=== PATIENT | male | born 1945 | race Caucasian/White ===

== ENCOUNTER 2016-08-16 09:55 | Day surgery (SDC) | payer MEDICARE, OTHER ==
--- NOTE | 2016-08-15 13:14 | PCM.PREANE ---
Preanesthetic Assessment - ANESTHESIA/TRANSFUSION/FAMILY HX Anesthesia/Transfusion History: Prior Anesthesia Family History of Anesthesia Reaction: No - REVIEW OF SYSTEMS Constitutional: Reports: no symptoms SHOVE UP: Reports: no symptoms Respiratory: Reports: no symptoms Cardiovascular: Reports: no symptoms GI: Reports: no symptoms Other: Reports: none - PHYSICAL ASSESSMENT Height: 5 ft 5 in Weight: 67.585 kg ASA Class: 3 Mental Status: alert & oriented x3 Airway Class: Mallampati = 2 Dentition: Reports: normal dentition ROM/Head Extension: full Respiratory Status: lungs clear to auscultation bilaterally Cardiovascular Status: regular rate & rhythm, normal S1, S2, no murmur, blood pressure WNL - ALLERGIES Allergies/Adverse Reactions: Allergies Allergy/AdvReac Type Severity Reaction Status Date / Time Penicillins Allergy Rash Verified 08/11/16 12:45 - ANESTHESIA PLAN Free Text/Narrative:: Pt is currently using albuterol inhaler 2-3 times daily. Pt will receive albuterol neb tx and EKG prior to procedure. Anesthesia Type Planned: MAC - ACKNOWLEDGEMENTS Pt an appropriate candidate for the planned anesthesia: Yes Alternatives and risks of anesthesia discussed w pt/guardian: Yes Pt/Guardian understands and agree with anesthesia plan: Yes PreAnesthesia Questionnaire HEENT History: Reports: Hard of hearing Other HEENT History: wears glasses, yuan hearing aids Cardiovascular History: Reports: High cholesterol, Hypertension Respiratory History: Reports: COPD, SOB, Other (see below) Other Respiratory History: 1 pack a day smoker for 44 years, wheezing at times , has inhaler he uses almost every day, 2-3 times per day Gastrointestinal History: Reports: Colon polyp, GERD Genitourinary History: Reports: None Musculoskeletal History: Reports: Osteoarthritis Neurological History: Reports: None Psychiatric History: Reports: None Endocrine/Metabolic History: Reports: None Hematologic History: Reports: None Immunologic History: Reports: None Oncologic (Cancer) History: Reports: None Dermatologic History: Reports: None - Infectious Disease History Infectious Disease History: Reports: None - Past Surgical History Head Surgeries/Procedures: Reports: None GI Surgical History: Reports: Colonoscopy Male Surgical History: Reports: Vasectomy Musculoskeletal Surgical History: Reports: Arthroscopic knee, Knee replacement Other Musculoskeletal Surgeries/Procedures:: hx ankle surgery, total knee replacement, and knee arthroscopy - SUBSTANCE USE Smoking Status *Q: Current Every Day Smoker Tobacco Use Within Last Twelve Months: Cigarettes Days Per Week of Alcohol Use: 7 Number of Drinks Per Day: 2 Total Drinks Per Week: 14 Recreational Drug Use History: No - HOME MEDS Home Medications: Home Meds Albuterol [Proventil HFA] 2 puff INH ASDIRECTED PRN 08/11/16 [History] Ascorbate Calcium [Vitamin C] 500 mg PO TID 08/11/16 [History] Aspirin [[place] Aspirin] 81 mg PO DAILY 08/11/16 [History] Cholecalciferol (Vitamin D3) [Vitamin D3] 1,000 units PO DAILY 08/11/16 [History ] Ibuprofen 2 tab PO ASDIRECTED PRN 08/11/16 [History] L.acidoph,Paracasei, B.lactis [Probiotic] 1 tab PO DAILY 08/11/16 [History] Multivitamin [Men's Multi-Vitamin] 1 tab PO DAILY 08/11/16 [History] Niacin [Niacin ER] 500 mg PO BID 08/11/16 [History] Omeprazole 20 mg PO DAILY 08/11/16 [History] Saw [place] 200 mg PO DAILY 08/11/16 [History] Vitamin E 400 units PO DAILY 08/11/16 [History] Zinc 50 mg PO DAILY 08/11/16 [History] atorvaSTATin Calcium [Atorvastatin Calcium] 80 mg PO BEDTIME 08/11/16 [History] - CURRENT (IN HOUSE) MEDS Current Meds: Current Medications Lactated Ringer's (Ringers, Lactated) 1,000 mls @ 125 mls/hr IV ASDIRECTED [facility]
[~2016-08-16 09:55] MED LIST: Albuterol 0.083% 2.5 MG/3 ML Neb Soln NEB ONE; Lactated Ringers 1,000 ML IV SCH; Lidocaine 2% 5 ML SDV ONE; Propofol 200 MG/20 ML SDV ONE; fentaNYL 100 MCG/2 ML SDV ONE
[2016-08-16] MEDS ORDERED: Albuterol 0.083% 2.5 MG/3 ML Neb Soln ONE (10:28)
[2016-08-16] MEDS ORDERED: fentaNYL 100 MCG/2 ML SDV ONE (13:02)
[2016-08-16] MEDS ORDERED: Lactated Ringers 1,000 ML IV SCH (13:15)
--- NOTE | 2016-08-16 13:16 | PCM.OPNOTE ---
- General Post-Op/Procedure Note Date of Surgery/Procedure: 08/16/16 Operative Procedure(s): Colonoscopy Pre Op Diagnosis: Personal history of colon polyps Post-Op Diagnosis: Sigmoid diverticulosis Anesthesia Technique: MAC (ASA III) Primary Surgeon: Darren Magdaleno Supervisor [employer] Department: Yohana Dia Condition: Good Free Text/Narrative:: Dictation [id number]
--- NOTE | 2016-08-16 13:32 | PCM.POSTAN ---
POST ANESTHESIA ASSESSMENT - MENTAL STATUS Mental Status: alert, oriented - RESPIRATORY Respiratory Status: respiratory rate WNL, airway patent, O2 saturation stable - CARDIOVASCULAR CV Status: pulse rate WNL, blood pressure stable - GASTROINTESTINAL GI Status: no symptoms - POST OP HYDRATION Hydration Status: adequate & stable
[2016-08-16 14:01] VITALS: BP 102/54
--- NOTE | 2016-08-17 06:18 | OR ---
SURGEON: Darren Magdaleno M.D. DATE OF PROCEDURE: 08/16/2016 OPERATION PERFORMED: Colonoscopy. LOCOMOTIVE ELECTRICIAN: Dr. Dia. ANESTHESIA: MAC. ASA CLASSIFICATION: III. PREOPERATIVE DIAGNOSIS: Personal history of colon polyps. POSTOPERATIVE DIAGNOSIS: Sigmoid diverticulosis. No evidence of neoplasia. DESCRIPTION OF PROCEDURE: The patient was taken to the endoscopy room and positioned on the endoscopy table in the left lateral decubitus position. Time-out was called for appropriate identification of patient and procedure. Monitored anesthesia care was provided. The colonoscope was inserted into the rectum and advanced with moderate difficulty to the cecum where the colonoscope was retroflexed to visualize the ascending colon from below. The colonoscope was then straightened and slowly withdrawn. The cecum, ascending colon, hepatic flexure, transverse colon, splenic flexure, and descending colon showed no tumors, polyps, diverticula, or angiodysplastic changes. Sigmoid colon demonstrates numerous wide-mouth diverticula. No stricture, spasm, or bleeding was noted. No polyps were encountered. The colonoscope was withdrawn to the rectum and retroflexed to visualize the anal orifice from above. No tumors or polyps were seen and there were no acute hemorrhoidal changes. The colonoscope was then straightened and the rectum aspirated, and the colonoscope removed. The patient tolerated the procedure well and was taken to recovery room in stable condition. AUDREY NOLASCO /[id number]
== END 2016-08-16 13:59 | disposition home or self-care (01) ==
LOC: MW.SDS 09:55
PROVIDERS: ATTEND Surgery
PROC: 0DJD8ZZ Inspection of Lower Intestinal Tract, Via Natural or Artificial Opening Endoscopic (ICD-10-PCS; principal; 2016-08-16)
DX: Z12.11 Encounter for screening for malignant neoplasm of colon (principal); K57.30 Diverticulosis of large intestine without perforation or abscess without bleeding; E78.00 Pure hypercholesterolemia, unspecified; F17.210 Nicotine dependence, cigarettes, uncomplicated; I10 Essential (primary) hypertension; J44.9 Chronic obstructive pulmonary disease, unspecified; K21.9 Gastro-esophageal reflux disease without esophagitis; M19.90 Unspecified osteoarthritis, unspecified site; Z86.010 Personal history of colon polyps; Z86.19 Personal history of other infectious and parasitic diseases; Z88.0 Allergy status to penicillin; Z79.82 Long term (current) use of aspirin; Z79.899 Other long term (current) drug therapy; Z98.52 Vasectomy status; Z96.659 Presence of unspecified artificial knee joint; Z98.890 Other specified postprocedural states
CPT/HCPCS: 93005; 94664; G0105; J3010; J7120; 00810; J2704

== ENCOUNTER 2017-09-27 10:57 | Day surgery (SDC) | payer OTHER, MEDICARE ==
[~2017-09-27 10:57] MED LIST changes: -Albuterol 0.083% 2.5 MG/3 ML Neb Soln NEB ONE; +Betamethasone Acetate/Betamethasone Sod Phosphate 30 MG/5 ML MDV ONE; +Iopamidol 408 MG/ML 50 ML SDV ONE; -Lactated Ringers 1,000 ML IV SCH; -Propofol 200 MG/20 ML SDV ONE; +Ropivacaine 0.5% 5 MG/ML 30 ML SDV ONE; -fentaNYL 100 MCG/2 ML SDV ONE
--- NOTE | 2017-09-27 14:25 | OR ---
SURGEON: Lorrie Evans D.O. DATE OF PROCEDURE: 09/27/2017 OR STAFF PRESENT: 1. Leonardo Samuel RN. 2. Manda Aldana RN. 3. RT Sigifredo. WOUND CLASSIFICATION: I. PREOPERATIVE DIAGNOSES: 1. Lumbar radiculopathy. 2. Lumbar spinal stenosis. 3. Chronic low back pain. POSTOPERATIVE DIAGNOSES: 1. Lumbar radiculopathy. 2. Lumbar spinal stenosis. 3. Chronic low back pain. PROCEDURES PERFORMED: 1. Caudal epidural steroid injection. 2. Fluoroscopic guidance for needle placement. 3. Local with oral Valium for sedation. SCREENING QUESTIONS: The patient answered "no" to all of the following questions: 1. Are you allergic to latex? 2. Do you have a bleeding disorder? 3. Do you have any current local or systemic infections? 4. Are you taking any anti-inflammatories or blood thinners? 5. Do you have any joint replacements, heart valve replacements, or a pacemaker? DESCRIPTION OF PROCEDURE: The patient had the procedure thoroughly explained including all possible risks, benefits and alternatives. Consent was signed in my clinic indicating understanding and willingness to proceed. The patient presented to [facility] and was escorted to the dressing room to disrobe and change into a hospital gown. Preoperative vital signs were taken and stable. The patient reported that Valium was taken prior to the procedure. The patient was brought back to the procedure room and placed in the prone position on the procedure room table. A pillow was placed under the hips in order to flatten the lumbar lordosis. The back was prepped with ChloraPrep and sterilely draped. All personnel in the operating room were dressed in appropriate attire including surgical scrubs, head and shoe covers. This was to ensure sterility while in the treatment room. During the time fluoroscopy was in use, all personnel in the operating room wore lead hernandez with thyroid collars. Sterile technique was used throughout the procedure. The patient was awake and conversant throughout the procedure. There was no evidence of infection at the site of needle insertion. Skeletal landmarks were identified under fluoroscopy for the lumbar epidural. Skin was anesthetized with 2% lidocaine with a sterile 27-gauge 1.5 inch needle. Then, a 20-gauge Tuohy epidural needle was placed in the epidural space with loss of resistance technique under fluoroscopic guidance. No heme, cerebrospinal fluid, or paresthesias were noted. Isovue-200 contrast dye was injected in 0.2 cubic centimeter increments and seen to outline the epidural space in both AP and lateral views. There was no intravascular flow pattern observed under live fluoroscopy. Then 12 milligrams of Celestone was slowly injected after negative aspiration. The patient tolerated the procedure well. Vital signs were stable during and after the procedure. The staff escorted the patient to the recovery area and the patient was released in stable condition after a brief stay in the recovery room monitored by the nurse. The patient was given both oral and written discharge and follow up instructions with recommendation to follow up given for 2-3 weeks. The patient voiced understanding including understanding of those signs and symptoms that would require emergency care. The patient knows how to contact the office if there are any additional problems or questions in the meantime. PREOPERATIVE PAIN: 7/10. POSTOPERATIVE PAIN: 4/10. FOLLOWUP: Follow up in Pain Clinic in 3 weeks. BECKI / CONSTANCE /[id number]
== END 2017-09-27 13:00 | disposition home or self-care (01) ==
LOC: MW.SDS 10:57
PROVIDERS: ATTEND Anesthesiology
DX: G89.29 Other chronic pain (principal); M54.5 Low back pain; M54.16 Radiculopathy, lumbar region; M48.061 Spinal stenosis, lumbar region without neurogenic claudication; E78.00 Pure hypercholesterolemia, unspecified; Z79.82 Long term (current) use of aspirin; Z79.899 Other long term (current) drug therapy; F17.210 Nicotine dependence, cigarettes, uncomplicated; Z88.0 Allergy status to penicillin
CPT/HCPCS: 62323; J0702; J2795; Q9966

== ENCOUNTER 2017-10-01 13:35 | Emergency (ER) | payer MEDICARE, OTHER ==
--- NOTE | 2017-10-01 14:07 | EDM.PDOC ---
ED HPI GENERAL MEDICAL PROBLEM - General Chief Complaint: Back Pain or Injury Stated Complaint: AMBULANCE Time Seen by Provider: 10/01/17 14:01 Source of Information: Reports: Patient History Limitations: Reports: No Limitations - History of Present Illness INITIAL COMMENTS - FREE TEXT/NARRATIVE: HISTORY AND PHYSICAL: History of present illness: Patient is a 72-year-old male who presents to the emergency room today with complaints of low back pain. He has a long-standing history of low back pain into the left lower extremity, multilevel degenerative disc disease, lumbar lordosis and spinal stenosis. He saw Dr. Funk for an epidural steriod on 2017. States he felt somewhat improved the following day but by the end of that evening he did have symptoms started to return. Today while lying in his bed he was doing some physical therapy exercises and moving his knees side to side. While moving his knees he did feel a muscular spasm to his left low back. He called the ambulance to come and be evaluated. He states he does have hydrocodone available to him (uses at night time) and uses [id number] Tylenol and ice routinely. Denies any urinary or fecal incontinence. Denies any fever, chills, chest pain or shortness of breath. Denies any abdominal pain, nausea, vomiting, diarrhea or constipation. Denies any injury or trauma. Review of systems: As per history of present illness and below otherwise all systems reviewed and negative. Past medical history: As per history of present illness and as reviewed below otherwise noncontributory. Surgical history: As per history of present illness and as reviewed below otherwise noncontributory. Social history: No reported history of drug or alcohol abuse. Family history: As per history of present illness and as reviewed below otherwise noncontributory. Physical exam: General: Well-developed and well-nourished 72-year-old male. Alert and oriented. Nontoxic appearing and in no acute distress. HEENT: Atraumatic, normocephalic, pupils equal and reactive bilaterally, negative for conjunctival pallor or scleral icterus, mucous membranes moist, throat clear, neck supple, nontender, trachea midline. No drooling or trismus noted. No meningeal signs Lungs: Clear to auscultation, breath sounds equal bilaterally, chest nontender. Heart: S1S2, regular rate and rhythm without overt murmur Abdomen: Soft, nondistended, nontender. Negative for masses or hepatosplenomegaly. Negative for costovertebral tenderness. Pelvis: Stable nontender. Genitourinary: Deferred. Rectal: Deferred. Skin: Intact, warm, dry. No lesions or rashes noted. Extremities: Atraumatic, negative for cords or calf pain. Neurovascular unremarkable. Neuro: Awake, alert, oriented. Cranial nerves II through XII unremarkable. Cerebellum unremarkable. Motor and sensory unremarkable throughout. Exam nonfocal. Notes: Epidural site appears intact without signs of infection or complications. X-ray shows degenerative disc disease at L3-4 and L5-S1. No evidence of fracture subluxation or bony lesions. Discussed with patient the limited options through the emergency room as he has recently had an epidural steroid injection. He does take hydrocodone at night. Prescribed him Flexeril as he is describing this discomfort as a muscular spasm we discussed thoroughly to not combine his Flexeril with his nighttime hydrocodone. He voices understanding and will follow up with Dr Funk/Nathan on Tuesday. We discussed signs and symptoms that would prompt him to come back to the emergency room. He and his significant other voice understanding and are agreeable to plan of care. They deny any further questions at this time. Diagnostics: Lumbar x-ray Therapeutics: Norflex, Toradol Impression: Chronic degenerative disc disease Muscular strain, left low back Plan: 1. Flexeril one tab up to 3 times daily as needed for muscular spasms. 2. Continue to use your Tylenol and/or ibuprofen as needed for daytime use. You may continue to use the ice as needed for pain management. 3. Follow-up with your primary care doctor on Tuesday. Please inform them you were evaluated in the emergency room over the weekend. To the ED as needed and as discussed. Definitive disposition and diagnosis as appropriate pending reevaluation and review of above. Duration: Hour(s):, Chronic Location: Reports: Back Left Lower Back Pain Score (Numeric/FACES): 7 - Related Data Allergies Allergy/AdvReac Type Severity Reaction Status Date / Time Penicillins Allergy Rash Verified 10/01/17 13:46 Home Meds: Home Meds Albuterol [Proventil HFA] 2 puff INH ASDIRECTED PRN 08/11/16 [History] Ascorbate Calcium [Vitamin C] 500 mg PO TID 08/11/16 [History] Aspirin [[place] Aspirin] 81 mg PO DAILY 08/11/16 [History] Cholecalciferol (Vitamin D3) [Vitamin D3] 1,000 units PO DAILY 08/11/16 [History ] Ibuprofen 2 tab PO ASDIRECTED PRN 08/11/16 [History] L.acidoph,Paracasei, B.lactis [Probiotic] 1 tab PO DAILY 08/11/16 [History] Multivitamin [Men's Multi-Vitamin] 1 tab PO DAILY 08/11/16 [History] Niacin [Niacin ER] 500 mg PO BID 08/11/16 [History] Omeprazole 20 mg PO DAILY 08/11/16 [History] Saw [place] 200 mg PO DAILY 08/11/16 [History] Vitamin E 400 units PO DAILY 08/11/16 [History] Zinc 50 mg PO DAILY 08/11/16 [History] atorvaSTATin Calcium [Atorvastatin Calcium] 80 mg PO BEDTIME 08/11/16 [History] Acetaminophen/HYDROcodone [[place] 325-5 MG] 1 tab PO Q8H PRN 10/01/17 [History] Past Medical History HEENT History: Reports: Hard of Hearing Other HEENT History: wears glasses, yuan hearing aids Cardiovascular History: Reports: High Cholesterol, Hypertension Respiratory History: Reports: COPD, SOB, Other (See Below) Other Respiratory History: 1 pack a day smoker for 44 years, wheezing at times , has inhaler he uses almost every day, 2-3 times per day Gastrointestinal History: Reports: Colon Polyp, GERD Genitourinary History: Reports: None Musculoskeletal History: Reports: Osteoarthritis Neurological History: Reports: None Psychiatric History: Reports: None Endocrine/Metabolic History: Reports: None Hematologic History: Reports: None Immunologic History: Reports: None Oncologic (Cancer) History: Reports: None Dermatologic History: Reports: None - Infectious Disease History Infectious Disease History: Reports: Chicken Pox - Past Surgical History Head Surgeries/Procedures: Reports: None Male Surgical History: Reports: Vasectomy Musculoskeletal Surgical History: Reports: Arthroscopic Knee, Knee Replacement Social & Family History - Family History Family Medical History: Noncontributory - Tobacco Use Smoking Status *Q: Current Every Day Smoker Years of Tobacco use: 35 Packs/Tins Daily: 1 - Caffeine Use Caffeine Use: Reports: Coffee - Alcohol Use Days Per Week of Alcohol Use: 7 Number of Drinks Per Day: 2 Total Drinks Per Week: 14 - Recreational Drug Use Recreational Drug Use: No Drug Use in Last 12 Months: No ED ROS GENERAL - Review of Systems Review Of Systems: ROS reveals no pertinent complaints other than HPI. ED EXAM,LOWER BACK PAIN/INJURY - Physical Exam Exam: See Below (See dictation) Course - Vital Signs Last Recorded V/S: Last Vital Signs Temp 97.9 F 10/01/17 13:39 Pulse 70 10/01/17 13:39 Resp 18 10/01/17 13:39 BP 171/90 H 10/01/17 13:39 Pulse Ox - Orders/Labs/Meds Orders: Active Orders 24 hr Category Date Time Status Lumbar Spine 2 or 3V [CR] Stat Exams 10/01/17 14:13 Taken Meds: Medications Discontinued Medications Generic Name Dose Route Start Last Admin Trade Name Freq PRN Reason Stop Dose Admin Ketorolac Tromethamine 60 mg 10/01/17 14:59 Toradol IM 10/01/17 15:00 ONETIME ONE Orphenadrine Citrate 60 mg 10/01/17 14:59 Norflex IM 10/01/17 15:00 NOW STA Departure - Departure Time of Disposition: 15:04 Disposition: Home, Self-Care 01 Clinical Impression: Muscle spasm of back, Degenerative disc disease, lumbar - Discharge Information Instructions: Muscle Cramps and Spasms, [id number] Forms: ED Department Discharge Additional Instructions: The following information is given to patients seen in the emergency department who are being discharged to home. This information is to outline your options for follow-up care. We provide all patients seen in our emergency department with a follow-up referral. The need for follow-up, as well as the timing and circumstances, are variable depending upon the specifics of your emergency department visit. If you don't have a primary care physician on staff, we will provide you with a referral. We always advise you to contact your personal physician following an emergency department visit to inform them of the circumstance of the visit and for follow-up with them and/or the need for any referrals to a consulting specialist. The emergency department will also refer you to a specialist when appropriate. This referral assures that you have the opportunity for follow-up care with a specialist. All of these measure are taken in an effort to provide you with optimal care, which includes your follow-up. Under all circumstances we always encourage you to contact your private physician who remains a resource for coordinating your care. When calling for follow-up care, please make the office aware that this follow-up is from your recent emergency room visit. If for any reason you are refused follow-up, please contact the [facility] Emergency Department at and asked to speak to the emergency department charge nurse. [facility] [address] [place] [id number] 1. Flexeril one tab up to 3 times daily as needed for muscular spasms. 2. Continue to use your Tylenol and/or ibuprofen as needed for daytime use. You may continue to use the ice as needed for pain management. 3. Follow-up with your primary care doctor on Tuesday. Please inform them you were evaluated in the emergency room over the weekend. To the ED as needed and as discussed. - My Orders Last 24 Hours: My Active Orders 10/01/17 14:13 Lumbar Spine 2 or 3V [CR] Stat - Assessment/Plan Last 24 Hours: My Active Orders 10/01/17 14:13 Lumbar Spine 2 or 3V [CR] Stat
[2017-10-01] MEDS ORDERED: Ketorolac 60 MG/2 ML SDV IM ONE (14:59)
[2017-10-01 15:50] VITALS: BP 150/98
--- NOTE | 2017-10-03 10:24 | CR ---
EXAM DATE: 10/01/17 PATIENT'S AGE: 72 Patient: [facility] Facility: [place], [place] Site . Site : 1945 Study: XRay Spine Lumbar [id number]/[id number] 2:33:20 PM Ordering Physician: Doctor Zhao Final Report: INDICATION: PAIN IN LOWER BACK AFTER DOING STRECHES IN BED TO TRY TO LOOSEN UP BACK. PT STATES HX OF CHRONIC BACK PAIN TECHNIQUE: Upright AP and lateral lumbar spine films submitted. Comparison : None Findings : Five lumbar-type vertebral bodies. Mild narrowing of the L3-4 and L5-S1 interspaces. Advanced degenerative changes in the lower lumbar facet joints. No fracture, subluxation or destructive bony lesions. Extensive aortoiliac artery calcification. IMPRESSION: Degenerative disc disease at L3-4 and L5-S1. Dictated by Geo Bullock MD @ 10/01/2017 2:38:02 PM Dictated by: Geo Bullock MD @ 10/01/2017 14:38:07 (Electronic Signature) Report Signed by Proxy. JAIDA
== END 2017-10-01 15:50 | disposition home or self-care (01) ==
LOC: MW.ED 13:35
DX: M51.36 Other intervertebral disc degeneration, lumbar region (principal); M62.838 Other muscle spasm; F17.210 Nicotine dependence, cigarettes, uncomplicated; K21.9 Gastro-esophageal reflux disease without esophagitis; Z88.0 Allergy status to penicillin; Z79.899 Other long term (current) drug therapy; Z79.82 Long term (current) use of aspirin
CPT/HCPCS: 72100; 96372; 99284; J1885; J2360; 99283

== ENCOUNTER 2017-11-17 10:52 | Day surgery (SDC) | payer OTHER ==
[2017-11-17] MEDS ORDERED: Lidocaine 1% 0 ML ONE (12:08)
--- NOTE | 2017-11-17 16:35 | OR ---
SURGEON: Lorrie Evans D.O. DATE OF PROCEDURE: 11/17/2017 OR STAFF PRESENT: 1. Eduardo Ignacio RN. 2. Eduardo Lowry RN. 3. RT Sigifredo. WOUND CLASSIFICATION: I. PREOPERATIVE DIAGNOSES: 1. Lumbar degenerative disk disease. 2. Lumbar spondylosis. 3. Lumbar spinal stenosis. POSTOPERATIVE DIAGNOSES: 1. Lumbar degenerative disk disease. 2. Lumbar spondylosis. 3. Lumbar spinal stenosis. PROCEDURES PERFORMED: 1. Left transforaminal epidural steroid injection at L3. 2. Left transforaminal epidural steroid injection at L4. 3. Fluoroscopic guidance for needle placement. 4. Local with oral Valium for sedation. SCREENING QUESTIONS: The patient answered "no" to all of the following questions: 1. Are you allergic to iodine, Betadine or latex? 2. Do you have a bleeding disorder? 3. Do you have any joint replacements, heart valve replacements, or a pacemaker? 4. Are you allergic to anti-inflammatories or blood thinners? 5. Do you have any current local or systemic infections? MEDICAL NECESSITY: This is a patient with a history of chronic low back pain and lower extremity radicular pain in the above dermatomal pattern that comes in for the above diagnostic and therapeutic procedure. Pertinent positives and negatives for this suspected disease process along with the diagnostic findings and testing are in the patient's history and physical exam. The most salient feature includes radicular pain in the above dermatomal pattern. The patient had failed attempts at conservative therapy including physical therapy, nonsteroidal anti- inflammatory drugs, and other medications. No contraindications to perform this procedure including medical, no bleeding disorders or infections, no psychological, no antisocial personality disorder or active addiction disorder. There are no work-related issues, and, in general, the patient does not have any history of multiple prior interventions, surgeries or nerve blocks which have failed to return the patient to function. The patient's other symptoms to be treated include numbness, paresthesia, dysesthesia or hypoesthesia referred into the left lower extremity or any weakness in the involved myotome. This procedure is being performed in accordance with national guidelines as written by the [employer] (MARIZOL). DESCRIPTION OF PROCEDURE: The patient had the procedure thoroughly explained including risks, benefits and alternatives. Consent was signed in my clinic indicating understanding and willingness to proceed. The patient presented to [facility] where the patient was escorted to the dressing room to disrobe and change into a hospital gown. Preoperative vital signs were taken and stable. The patient reported that Valium was taken prior to the procedure. The patient was brought to the procedure room and placed in the prone position on the table. A pillow was placed under the abdomen in order to flatten the lumbar lordosis. The back was prepped with ChloraPrep and sterilely draped. All personnel in the operating room were dressed in appropriate attire including surgical scrubs, head and shoe covers. This was to ensure sterility while in the treatment room. During the time fluoroscopy was in use, all personnel in the operating room wore lead hernandez with thyroid collars. Sterile technique was used during the procedure. The fluoroscope was placed for the left L3 transforaminal epidural steroid injection. There was no sign of infection at the skin site for needle insertion. The skin was anesthetized with 2% lidocaine with a 27 gauge 1-1/2 inch needle. Then, a 22 gauge 3-1/2 inch spinal needle, advanced to the left L3 Foramen at the " 6 o'clock position of the eye of the Anmol dog". Under direct fluoroscopic guidance needle position was verified in three views; AP, oblique and lateral, with 0.2 cubic centimeters increments of Isovue-200 dye. No intravascular flow pattern was observed under live fluoroscopy.Then 6 milligrams of Celestone was slowly injected after negative aspiration of heme, cerebrospinal fluid and no paresthesias were noted. The needle was cleared prior to removal from the skin. The procedure was then repeated for the left L4 transforaminal epidural steroid injection under fluoroscopy as above. No adverse reactions were noted. The patient was brought to the recovery room awake and in good condition by my staff. The patient was monitored for short period of time in recovery room. Discharge instructions were given after a brief stay in the recovery area. Both oral and written discharge and follow up instructions were given. The patient will follow up in the clinic in 3-4 weeks post procedure to evaluate the efficacy. The patient verbalized understanding including understanding of those signs and symptoms that would require emergency care and knows how to contact the office if there are any problems or questions in the meantime. PREOPERATIVE PAIN: 4/10. POSTOPERATIVE PAIN: 2/10. FOLLOWUP: Follow up in the Pain Clinic in 3 weeks. BECKI NOLASCO /[id number] MTDLaura
== END 2017-11-17 13:25 | disposition home or self-care (01) ==
LOC: MW.SDS 10:52
PROVIDERS: ATTEND Anesthesiology
DX: G89.29 Other chronic pain (principal); M48.061 Spinal stenosis, lumbar region without neurogenic claudication; M51.16 Intervertebral disc disorders with radiculopathy, lumbar region; M47.26 Other spondylosis with radiculopathy, lumbar region; J31.0 Chronic rhinitis; F17.210 Nicotine dependence, cigarettes, uncomplicated; Z88.0 Allergy status to penicillin; Z79.899 Other long term (current) drug therapy; Z79.82 Long term (current) use of aspirin
CPT/HCPCS: 62323; J0702; J2795; Q9966

== ENCOUNTER 2020-03-31 13:54 | Inpatient (IN) | payer MEDICARE, OTHER ==
[2020-03-31] MEDS ORDERED: Sodium Chloride 0.9% 10 ML Syringe FLUSH PRN (14:16)
[2020-03-31] MEDS: Sodium Chloride 0.9% 2.5 ML Syringe FLUSH PRN (14:24)
--- NOTE | 2020-03-31 14:28 | EDM.PDOC ---
ED HPI GENERAL MEDICAL PROBLEM - General Chief Complaint: Respiratory Problem Stated Complaint: BROUGHT FROM CLINIC Time Seen by Provider: 03/31/20 14:00 Source of Information: Reports: Patient History Limitations: Reports: No Limitations - History of Present Illness INITIAL COMMENTS - FREE TEXT/NARRATIVE: This is a very nice 74-year-old man with a past medical history of hypertension presenting with low oxygen saturations. He was sent over from the respiratory clinic where he was going for COVID testing. He reports a one-week history of fatigue and generalized weakness along with a chronic cough. His family members wanted him to get tested for COVID. When he went to the respiratory clinic, they checked his oxygen saturations and noted that they were 84% so he was di rected to the emergency department. Here in the ER, the patient denies any chest discomfort or shortness of breath. Denies fever, chills, nausea, vomiting, diarrhea. He reports that he has a chronic cough that he states is at baseline. He does complain of some generalized weakness over the past week or so and feeling generally tired and rundown. He denies any sick contacts with COVID-19 patients. No other complaints. Patient denies history of venous thromboembolism, lower extremity pain or swelling, hemoptysis, recent surgery or immobilization or long travel, history of active malignancy. ROS: A 10-point review of systems was negative, except as noted in the HPI (or in the ROS section of this note). Past medical history: Reviewed, no additional pertinent history. Surgical history: Reviewed in system, no additional pertinent history. Social history: Reviewed in system, no additional pertinent history. Family history: Reviewed in system, no additional pertinent history. PHYSICAL EXAM Vital signs reviewed. Nursing notes reviewed. Constitutional: Awake, alert, non-distressed, thin appearing man. Head: Normocephalic, atraumatic. Eyes: EOMI, conjunctiva normal, no discharge, no scleral icterus. Ears, Nose, Throat: External ears and nose normal, moist oral mucosa. Cardiovascular: 2+ radial pulse, capillary refill less than 2 seconds. Pulmonary: normal work of breathing, no accessory muscle use. Abdomen/GI: Soft, nontender, nondistended, no guarding or rigidity, no masses. Musculoskeletal: No deformities. Integumentary: Appropriate color for ethnicity, warm, dry, no pallor or jaundice, no rash. Neurologic: Alert, answering questions appropriately, normal speech, no facial droop, moving all extremities well. Psychiatric: Appropriate mood and affect, normal thought process. - Related Data Allergies Allergy/AdvReac Type Severity Reaction Status Date / Time Penicillins Allergy Rash Verified 03/31/20 14:13 Home Meds: Home Meds Albuterol [Proventil HFA] 2 puff INH ASDIRECTED PRN 08/11/16 [History] Ascorbate Calcium [Vitamin C] 500 mg PO TID 08/11/16 [History] Aspirin [Beltrami Aspirin EC] 81 mg PO DAILY 08/11/16 [History] Cholecalciferol (Vitamin D3) [Vitamin D3] 1,000 units PO DAILY 08/11/16 [History] Ibuprofen 2 tab PO ASDIRECTED PRN 08/11/16 [History] L.acidoph,Paracasei, B.lactis [Probiotic] 1 tab PO DAILY 08/11/16 [History] Multivitamin [Men's Multi-Vitamin] 1 tab PO DAILY 08/11/16 [History] Niacin [Niacin ER] 500 mg PO BID 08/11/16 [History] Omeprazole 20 mg PO DAILY 08/11/16 [History] Saw [place] 200 mg PO DAILY 08/11/16 [History] Vitamin E 400 units PO DAILY 08/11/16 [History] Zinc 50 mg PO DAILY 08/11/16 [History] atorvaSTATin Calcium [Atorvastatin Calcium] 80 mg PO BEDTIME 08/11/16 [History] Acetaminophen/HYDROcodone [[place] 325-5 MG] 1 tab PO Q8H PRN 10/01/17 [History] Past Medical History HEENT History: Reports: Hard of Hearing Other HEENT History: wears glasses, yuan hearing aids Cardiovascular History: Reports: High Cholesterol, Hypertension Respiratory History: Reports: COPD, SOB, Other (See Below) Other Respiratory History: 1 pack a day smoker for 44 years, wheezing at times, has inhaler he uses almost every day, 2-3 times per day Gastrointestinal History: Reports: Colon Polyp, GERD Genitourinary History: Reports: None Musculoskeletal History: Reports: Osteoarthritis Neurological History: Reports: None Psychiatric History: Reports: None Endocrine/Metabolic History: Reports: None Hematologic History: Reports: None Immunologic History: Reports: None Oncologic (Cancer) History: Reports: None Dermatologic History: Reports: None - Infectious Disease History Infectious Disease History: Reports: Chicken Pox - Past Surgical History Head Surgeries/Procedures: Reports: None Male Surgical History: Reports: Vasectomy Musculoskeletal Surgical History: Reports: Arthroscopic Knee, Knee Replacement Social & Family History - Family History Family Medical History: Noncontributory - Tobacco Use Smoking Status *Q: Current Every Day Smoker Years of Tobacco use: 30 Packs/Tins Daily: 0.5 - Caffeine Use Caffeine Use: Reports: Coffee - Recreational Drug Use Recreational Drug Use: No ED ROS GENERAL - Review of Systems Review Of Systems: See Below ED EXAM, GENERAL - Physical Exam Exam: See Below EKG INTERPRETATION EKG Interpretation Comments: 12-Lead ECG Interpretation Acquired: 2:22 PM Rhythm: Sinus rhythm Rate: 75 bpm [place]: Normal Intervals: Normal Ectopy: None RV Strain: No obvious RV strain pattern. ST Segments/T-Waves: No notable changes Acute Ischemic Changes: None apparent Interpretation: No STEMI Course - Vital Signs Text/Narrative:: 74-year-old man with generalized weakness and hypoxia. Patient hemodynamically stable, afebrile, well-appearing, looks nontoxic. Differential diagnosis includes but is not limited to: Pneumonia, COVID-19 infection, sepsis, congestive heart failure, pulmonary embolism, pleural effusion, less likely pulmonary embolism, and many others. 2:30 PM: Noted to be hypoxic to 88% on room air, placed on 3 L/min by nasal cannula. Will order chest x-ray, ECG, labs, COVID-19 swab. Labs reassuring. Negative D-dimer, no WBC elevation. Normal renal function, mild LFT elevations. Negative troponin and BNP. COVID-19 swab positive. CXR shows no infiltrates. Low suspicion for PE given lack of chest pain or tachycardia, no leg swelling, etc. Due to new oxygen requirement and hypoxia with SPO2 <90%, will need admission to the hospital. Given IV Decadron and remdesivir (given FDA EUA handout). Discussed with hospitalist Dr. Osborn who will admit. Last Recorded V/S: Last Vital Signs Temp 36.9 C 03/31/20 14:08 Pulse 77 03/31/20 19:51 Resp 20 03/31/20 19:51 BP 114/68 03/31/20 19:51 Pulse Ox 95 03/31/20 19:51 - Orders/Labs/Meds Orders: Active Orders 24 hr Category Date Time Status Admission Status [Patient Status] [ADT] Stat ADT 03/31/20 16:52 Active Antiembolic Devices [RC] PER UNIT ROUTINE Care 03/31/20 18:40 Active Cardiac Monitoring [RC] . DIRECTED Care 03/31/20 14:02 Active EKG Documentation Completion [RC] STAT Care 03/31/20 14:02 Active Oxygen Therapy [RC] PRN Care 03/31/20 18:40 Active Pulse Oximetry [RC] ASDIRECTED Care 03/31/20 14:02 Active RT Post Treatment Assessment [RC] Click to Edit Care 03/31/20 18:22 Active RT Pre-Treatment Assessment [RC] Click to Edit Care 03/31/20 18:22 Active Up ad Gini [RC] ASDIRECTED Care 03/31/20 18:40 Active VTE/DVT Education [RC] PER UNIT ROUTINE Care 03/31/20 18:40 Active Vital Signs [RC] Q4H Care 03/31/20 18:40 Active Regular Diet [DIET] Diet 03/31/20 Breakfast Active CBC WITH AUTO DIFF [HEME] AM Lab 04/01/20 05:11 Ordered CBC WITH AUTO DIFF [HEME] AM Lab 04/02/20 05:11 Ordered CBC WITH AUTO DIFF [HEME] AM Lab 04/03/20 05:11 Ordered CBC WITH AUTO DIFF [HEME] AM Lab 04/04/20 05:11 Ordered CBC WITH AUTO DIFF [HEME] AM Lab 04/05/20 05:11 Ordered COMPREHENSIVE METABOLIC PN,CMP [CHEM] AM Lab 04/01/20 05:11 Ordered COMPREHENSIVE METABOLIC PN,CMP [CHEM] AM Lab 04/02/20 05:11 Ordered COMPREHENSIVE METABOLIC PN,CMP [CHEM] AM Lab 04/03/20 05:11 Ordered COMPREHENSIVE METABOLIC PN,CMP [CHEM] AM Lab 04/04/20 05:11 Ordered COMPREHENSIVE METABOLIC PN,CMP [CHEM] AM Lab 04/05/20 05:11 Ordered Acetaminophen/HYDROcodone [[place] 325-5 MG] Med 03/31/20 18:22 Active 1 tab PO Q8H PRN Albuterol [Ventolin HFA] Med 03/31/20 18:22 Active 0 gm INH Q4H PRN Aspirin [Halfprin] Med 04/01/20 09:00 Active 81 mg PO DAILY Enoxaparin [Lovenox] Med 03/31/20 18:45 Active 40 mg SUBCUT Q24H Remdesivir (Eua) [Remdesivir (EUA)] 100 mg Med 04/01/20 18:45 Active Sodium Chloride 0.9% [Normal Saline] 100 ml IV Q24H Sodium Chloride 0.9% [Saline Flush] Med 03/31/20 14:16 Active 10 ml FLUSH ASDIRECTED PRN Sodium Chloride 0.9% [Saline Flush] Med 03/31/20 14:16 Active 2.5 ml FLUSH ASDIRECTED PRN atorvaSTATin Calcium [Atorvastatin Calcium] Med 03/31/20 21:00 Active 80 mg PO BEDTIME dexAMETHasone Med 04/01/20 09:00 Active 6 mg PO DAILY Saline Lock Insert [OM.PC] Stat Oth 03/31/20 14:16 Ordered Sequential Compression Device [OM.PC] Per Unit Routine Oth 03/31/20 18:40 Ordered Resuscitation Status Routine Resus Stat 03/31/20 18:40 Ordered Medication Orders Hydrocodone Bitart/Acetaminophen ([place] 325-5 Mg) 1 tab PO Q8H PRN PRN Reason: Pain Albuterol (Ventolin Hfa) 0 gm INH Q4H PRN PRN Reason: Wheezing Aspirin (Halfprin) 81 mg PO DAILY [facility] Dexamethasone (Dexamethasone) 6 mg PO DAILY [facility] Enoxaparin Sodium (Lovenox) 40 mg SUBCUT Q24H CHAVEZ Remdesivir 100 mg/ Sodium (Chloride) 100 mls @ 100 mls/hr IV Q24H CHAVEZ Stop: 04/04/20 19:44 Non-Formulary Medication (Atorvastatin Calcium [Atorvastatin Calcium]) 80 mg PO BEDTIME CHAVEZ Sodium Chloride (Saline Flush) 10 ml FLUSH ASDIRECTED PRN PRN Reason: Keep Vein Open Last Admin: 03/31/20 14:24 Dose: 10 ml Documented by: JEANETTE Sodium Chloride (Saline Flush) 2.5 ml FLUSH ASDIRECTED PRN PRN Reason: Keep Vein Open Last Admin: 03/31/20 14:24 Dose: 2.5 ml Documented by: JEANETTE Labs: Laboratory Tests 03/31/20 03/31/20 03/31/20 Range/Units 14:28 14:28 14:28 WBC 5.07 (4.0-11.0) K/uL RBC 4.63 (4.50-5.90) M/uL Hgb 14.7 (13.0-17.0) g/dL Hct 44.3 (38.0-50.0) % MCV 95.7 (80.0-98.0) fL MCH 31.7 (27.0-32.0) pg MCHC 33.2 (31.0-37.0) g/dL RDW Std Deviation 49.4 (28.0-62.0) fl RDW Coeff of Vera 14 (11.0-15.0) % Plt Count 102 L (150-400) K/uL MPV 11.00 (7.40-12.00) fL Neut % (Auto) 76.9 (48.0-80.0) % Lymph % (Auto) 16.2 (16.0-40.0) % Mcdowell % (Auto) 6.7 (0.0-15.0) % Eos % (Auto) 0.2 (0.0-7.0) % Baso % (Auto) 0.0 (0.0-1.5) % Neut # (Auto) 3.9 (1.4-5.7) K/uL Lymph # (Auto) 0.8 (0.6-2.4) K/uL Mcdowell # (Auto) 0.3 (0.0-0.8) K/uL Eos # (Auto) 0.0 (0.0-0.7) K/uL Baso # (Auto) 0.0 (0.0-0.1) K/uL Nucleated RBC % 0.0 /100WBC Nucleated RBCs # 0 K/uL D-Dimer, Quantitative (0.0-0.50) mg/L FEU VBG pH 7.42 H (7.31-7.41) VBG pCO2 41 (35-45) mmHG VBG pO2 38 (30-40) mmHG VBG HCO3 26 (22-30) mEq/L VBG Total CO2 23 L (41-51) mmol/L VBG Base Excess 1.4 (-3.0-3.0) Lactate 1.1 (0.20-2.00) mmol/L Sodium (136-148) mmol/L Potassium (3.5-5.1) mmol/L Chloride (98-107) mmol/L Carbon Dioxide (21.0-32.0) mmol/L BUN (7.0-18.0) mg/dL Creatinine (0.8-1.3) mg/dL Est Cr Clr Drug Dosing mL/min Estimated GFR (MDRD) ml/min Glucose (74-106) mg/dL Calcium (8.5-10.1) mg/dL Total Bilirubin (0.2-1.0) mg/dL AST (15-37) IU/L ALT (14-63) IU/L Alkaline Phosphatase (46-116) U/L Troponin I (0.000-0.056) ng/mL B-Natriuretic Peptide (<100) PG/ML Total Protein (6.4-8.2) g/dL Albumin (3.4-5.0) g/dL Globulin (2.6-4.0) g/dL Albumin/Globulin Ratio (0.9-1.6) SARS-CoV-2 RNA (MEET) (NEGATIVE) 03/31/20 03/31/20 03/31/20 Range/Units 14:28 14:28 14:28 WBC (4.0-11.0) K/uL RBC (4.50-5.90) M/uL Hgb (13.0-17.0) g/dL Hct (38.0-50.0) % MCV (80.0-98.0) fL MCH (27.0-32.0) pg MCHC (31.0-37.0) g/dL RDW Std Deviation (28.0-62.0) fl RDW Coeff of Vera (11.0-15.0) % Plt Count (150-400) K/uL MPV (7.40-12.00) fL Neut % (Auto) (48.0-80.0) % Lymph % (Auto) (16.0-40.0) % Mcdowell % (Auto) (0.0-15.0) % Eos % (Auto) (0.0-7.0) % Baso % (Auto) (0.0-1.5) % Neut # (Auto) (1.4-5.7) K/uL Lymph # (Auto) (0.6-2.4) K/uL Mcdowell # (Auto) (0.0-0.8) K/uL Eos # (Auto) (0.0-0.7) K/uL Baso # (Auto) (0.0-0.1) K/uL Nucleated RBC % /100WBC Nucleated RBCs # K/uL D-Dimer, Quantitative 0.38 (0.0-0.50) mg/L FEU VBG pH (7.31-7.41) VBG pCO2 (35-45) mmHG VBG pO2 (30-40) mmHG VBG HCO3 (22-30) mEq/L VBG Total CO2 (41-51) mmol/L VBG Base Excess (-3.0-3.0) Lactate (0.20-2.00) mmol/L Sodium 135 L (136-148) mmol/L Potassium 3.7 (3.5-5.1) mmol/L Chloride 100 (98-107) mmol/L Carbon Dioxide 26.7 (21.0-32.0) mmol/L BUN 16 (7.0-18.0) mg/dL Creatinine 1.0 (0.8-1.3) mg/dL Est Cr Clr Drug Dosing 54.27 mL/min Estimated GFR (MDRD) > 60.0 ml/min Glucose 109 H (74-106) mg/dL Calcium 8.4 L (8.5-10.1) mg/dL Total Bilirubin 0.5 (0.2-1.0) mg/dL AST 51 H (15-37) IU/L ALT 64 H (14-63) IU/L Alkaline Phosphatase 67 (46-116) U/L Troponin I < 0.050 (0.000-0.056) ng/mL B-Natriuretic Peptide 23 (<100) PG/ML Total Protein 6.5 (6.4-8.2) g/dL Albumin 2.7 L (3.4-5.0) g/dL Globulin 3.8 (2.6-4.0) g/dL Albumin/Globulin Ratio 0.7 L (0.9-1.6) SARS-CoV-2 RNA (MEET) (NEGATIVE) 03/31/20 Range/Units 14:30 WBC (4.0-11.0) K/uL RBC (4.50-5.90) M/uL Hgb (13.0-17.0) g/dL Hct (38.0-50.0) % MCV (80.0-98.0) fL MCH (27.0-32.0) pg MCHC (31.0-37.0) g/dL RDW Std Deviation (28.0-62.0) fl RDW Coeff of Vera (11.0-15.0) % Plt Count (150-400) K/uL MPV (7.40-12.00) fL Neut % (Auto) (48.0-80.0) % Lymph % (Auto) (16.0-40.0) % [place]cdowell % (Auto) (0.0-15.0) % Eos % (Auto) (0.0-7.0) % Baso % (Auto) (0.0-1.5) % Neut # (Auto) (1.4-5.7) K/uL Lymph # (Auto) (0.6-2.4) K/uL [place] # (Auto) (0.0-0.8) K/uL Eos # (Auto) (0.0-0.7) K/uL Baso # (Auto) (0.0-0.1) K/uL Nucleated RBC % /100WBC Nucleated RBCs # K/uL D-Dimer, Quantitative (0.0-0.50) mg/L FEU VBG pH (7.31-7.41) VBG pCO2 (35-45) mmHG VBG pO2 (30-40) mmHG VBG HCO3 (22-30) mEq/L VBG Total CO2 (41-51) mmol/L VBG Base Excess (-3.0-3.0) Lactate (0.20-2.00) mmol/L Sodium (136-148) mmol/L Potassium (3.5-5.1) mmol/L Chloride (98-107) mmol/L Carbon Dioxide (21.0-32.0) mmol/L BUN (7.0-18.0) mg/dL Creatinine (0.8-1.3) mg/dL Est Cr Clr Drug Dosing mL/min Estimated GFR (MDRD) ml/min Glucose (74-106) mg/dL Calcium (8.5-10.1) mg/dL Total Bilirubin (0.2-1.0) mg/dL AST (15-37) IU/L ALT (14-63) IU/L Alkaline Phosphatase (46-116) U/L Troponin I (0.000-0.056) ng/mL B-Natriuretic Peptide (<100) PG/ML Total Protein (6.4-8.2) g/dL Albumin (3.4-5.0) g/dL Globulin (2.6-4.0) g/dL Albumin/Globulin Ratio (0.9-1.6) SARS-CoV-2 RNA (MEET) POSITIVE H (NEGATIVE) Meds: Medications Generic Name Dose Route Start Last Admin Trade Name Freq PRN Reason Stop Dose Admin Hydrocodone Bitart/Acetaminophen 1 tab 03/31/20 18:22 [place] 325-5 Mg PO Q8H PRN Pain Albuterol 0 gm 03/31/20 18:22 Ventolin Hfa INH Q4H PRN Wheezing Aspirin 81 mg 04/01/20 09:00 Halfprin PO DAILY CHAVEZ Dexamethasone 6 mg 04/01/20 09:00 Dexamethasone PO DAILY CHAVEZ Enoxaparin Sodium 40 mg 03/31/20 18:45 Lovenox SUBCUT Q24H CHAVEZ Remdesivir 100 mg/ Sodium 100 mls @ 100 mls/hr 04/01/20 18:45 Chloride IV 04/04/20 19:44 Q24H CHAVEZ Non-Formulary Medication 80 mg 03/31/20 21:00 Atorvastatin Calcium [Atorvastatin Calcium] PO BEDTIME CAHVEZ Sodium Chloride 10 ml 03/31/20 14:16 03/31/20 14:24 Saline Flush FLUSH 10 ml ASDIRECTED PRN Administration Keep Vein Open Sodium Chloride 2.5 ml 03/31/20 14:16 03/31/20 14:24 Saline Flush FLUSH 2.5 ml ASDIRECTED PRN Administration Keep Vein Open Discontinued Medications Generic Name Dose Route Start Last Admin Trade Name Freq PRN Reason Stop Dose Admin Dexamethasone 6 mg 03/31/20 16:49 03/31/20 17:11 Dexamethasone IVPUSH 03/31/20 16:50 6 mg ONETIME ONE Administration Remdesivir 200 mg/ Sodium 250 mls @ 250 mls/hr 03/31/20 17:15 03/31/20 17:41 Chloride IV 03/31/20 18:14 250 mls/hr ONETIME ONE Administration Departure - Departure Time of Disposition: 17:00 Disposition: Admitted As Inpatient 66 Condition: Good Clinical Impression: COVID-19 virus infection, Hypoxia - Discharge Information Sepsis Event Note (ED) - Evaluation Sepsis Screening Result: No Definite Risk - Focused Exam Vital Signs: Vital Signs Temp Pulse Resp BP Pulse Ox 03/31/20 19:51 77 20 114/68 95 03/31/20 18:40 63 115/69 96 03/31/20 18:16 62 116/72 92 L 03/31/20 17:46 61 125/73 92 L 03/31/20 14:08 36.9 C 80 17 118/83 90 L - My Orders Last 24 Hours: My Active Orders 03/31/20 14:02 Cardiac Monitoring [RC] . DIRECTED EKG Documentation Completion [RC] STAT Pulse Oximetry [RC] ASDIRECTED 03/31/20 14:16 Sodium Chloride 0.9% [Saline Flush] 10 ml FLUSH ASDIRECTED PRN Sodium Chloride 0.9% [Saline Flush] 2.5 ml FLUSH ASDIRECTED PRN Saline Lock Insert [OM.PC] Stat 03/31/20 16:52 Admission Status [Patient Status] [ADT] Stat - Assessment/Plan Last 24 Hours: My Active Orders 03/31/20 14:02 Cardiac Monitoring [RC] . DIRECTED EKG Documentation Completion [RC] STAT Pulse Oximetry [RC] ASDIRECTED 03/31/20 14:16 Sodium Chloride 0.9% [Saline Flush] 10 ml FLUSH ASDIRECTED PRN Sodium Chloride 0.9% [Saline Flush] 2.5 ml FLUSH ASDIRECTED PRN Saline Lock Insert [OM.PC] Stat 03/31/20 16:52 Admission Status [Patient Status] [ADT] Stat
[2020-03-31 15:16] LABS: BLOOD UREA NITROGEN,BUN 16 mg/dL (7.0-18.0); CARBON DIOXIDE,CO2 26.7 mmol/L (21.0-32.0); CHLORIDE,CL 100 mmol/L (98-107); GLUCOSE RANDOM 109 mg/dL (74-106); POTASSIUM,K 3.7 mmol/L (3.5-5.1); SODIUM,NA 135 mmol/L (136-148)
--- NOTE | 2020-03-31 16:09 | CR ---
INDICATION: Cough, SOB and fever. TECHNIQUE: Upright portable AP image of the chest. COMPARISON: 07/20/2017. FINDINGS: Lungs low in volume in comparison the previous examination with crowded markings. No obvious infiltrate. No pleural effusion. Heart size and pulmonary vasculature within normal limits. No significant bony abnormality. IMPRESSION: Shallow inspiration with crowded markings. No obvious acute infiltrate. Dictated by Gumaro Marcial MD @ Mar 31 2020 4:03PM Signed by Dr. Gumaro Marcial @ Mar 31 2020 4:08PM
[2020-03-31] MEDS ORDERED: Dexamethasone 10 MG/ML SDV IVPUSH ONE (16:49)
[2020-03-31] MEDS ORDERED: Albuterol HFA 18 Gm Inhaler INH PRN (18:22)
[2020-03-31] MEDS ORDERED: Acetaminophen/HYDROcodone 325-5 MG Tab PO PRN (18:22)
[2020-03-31] MEDS ORDERED: Enoxaparin 40 MG/0.4 ML Syringe SUBCUT SCH (18:45)
--- NOTE | 2020-03-31 18:45 | PCM.HP.2 ---
H&P History of Present Illness - General Date of Service: 03/31/20 Admit Problem/Dx: Admission Diagnosis/Problem Admission Diagnosis/Problem Hypoxia - History of Present Illness Initial Comments - Free Text/Narative: 74 yo male who for past week has been feeling ill. He reports fevers, fatigue and a cough. He denies any shortness of breath. In the ED he tested positive for COVID. He was found to be hypoxic requiring 2 L NC to keep sats above 90%. - Related Data Allergies/Adverse Reactions: Allergies Allergy/AdvReac Type Severity Reaction Status Date / Time Penicillins Allergy Rash Verified 03/31/20 14:13 Home Medications: Home Meds Albuterol [Proventil HFA] 2 puff INH ASDIRECTED PRN 08/11/16 [History] Ascorbate Calcium [Vitamin C] 500 mg PO TID 08/11/16 [History] Aspirin [Friona Aspirin EC] 81 mg PO DAILY 08/11/16 [History] Cholecalciferol (Vitamin D3) [Vitamin D3] 1,000 units PO DAILY 08/11/16 [History] Ibuprofen 2 tab PO ASDIRECTED PRN 08/11/16 [History] L.acidoph,Paracasei, B.lactis [Probiotic] 1 tab PO DAILY 08/11/16 [History] Multivitamin [Men's Multi-Vitamin] 1 tab PO DAILY 08/11/16 [History] Niacin [Niacin ER] 500 mg PO BID 08/11/16 [History] Omeprazole 20 mg PO DAILY 08/11/16 [History] Saw [place] 200 mg PO DAILY 08/11/16 [History] Vitamin E 400 units PO DAILY 08/11/16 [History] Zinc 50 mg PO DAILY 08/11/16 [History] atorvaSTATin Calcium [Atorvastatin Calcium] 80 mg PO BEDTIME 08/11/16 [History] Acetaminophen/HYDROcodone [[place] 325-5 MG] 1 tab PO Q8H PRN 10/01/17 [History] Past Medical History HEENT History: Reports: Hard of Hearing Other HEENT History: wears glasses, yuan hearing aids Cardiovascular History: Reports: High Cholesterol, Hypertension Respiratory History: Reports: COPD, SOB, Other (See Below) Other Respiratory History: 1 pack a day smoker for 44 years, wheezing at times, has inhaler he uses almost every day, 2-3 times per day Gastrointestinal History: Reports: Colon Polyp, GERD Genitourinary History: Reports: None Musculoskeletal History: Reports: Osteoarthritis Neurological History: Reports: None Psychiatric History: Reports: None Endocrine/Metabolic History: Reports: None Hematologic History: Reports: None Immunologic History: Reports: None Oncologic (Cancer) History: Reports: None Dermatologic History: Reports: None - Infectious Disease History Infectious Disease History: Reports: Chicken Pox - Past Surgical History Head Surgeries/Procedures: Reports: None Male Surgical History: Reports: Vasectomy Musculoskeletal Surgical History: Reports: Arthroscopic Knee, Knee Replacement Social & Family History - Family History Family Medical History: Noncontributory - Tobacco Use Smoking Status *Q: Current Every Day Smoker Years of Tobacco use: 30 Packs/Tins Daily: 0.5 - Caffeine Use Caffeine Use: Reports: Coffee - Recreational Drug Use Recreational Drug Use: No H&P Review of Systems - Review of Systems: Review Of Systems: Comprehensive ROS is negative, except as noted in HPI. Exam - Exam Exam: See Below - Vital Signs Vital Signs: Last Vital Signs Temp 36.9 C 03/31/20 14:08 Pulse 80 03/31/20 14:08 Resp 17 03/31/20 14:08 BP 118/83 03/31/20 14:08 Pulse Ox 90 L 03/31/20 14:08 Weight: 63.503 kg - Exam General: Alert, Oriented HEENT: Mucosa Moist & [place] Lungs: Clear to Auscultation, Normal Respiratory Effort GI/Abdominal Exam: Normal Bowel Sounds, Soft, Non-Tender Extremities: Non-Tender, No Pedal Edema Skin: Warm, Dry, Intact - Patient Data Lab Results Last 24 hrs: Laboratory Results - last 24 hr 03/31/20 03/31/20 03/31/20 Range/Units 14:28 14:28 14:28 WBC 5.07 (4.0-11.0) K/uL RBC 4.63 (4.50-5.90) M/uL Hgb 14.7 (13.0-17.0) g/dL Hct 44.3 (38.0-50.0) % MCV 95.7 (80.0-98.0) fL MCH 31.7 (27.0-32.0) pg MCHC 33.2 (31.0-37.0) g/dL RDW Std Deviation 49.4 (28.0-62.0) fl RDW Coeff of Vera 14 (11.0-15.0) % Plt Count 102 L (150-400) K/uL MPV 11.00 (7.40-12.00) fL Neut % (Auto) 76.9 (48.0-80.0) % Lymph % (Auto) 16.2 (16.0-40.0) % [place] % (Auto) 6.7 (0.0-15.0) % Eos % (Auto) 0.2 (0.0-7.0) % Baso % (Auto) 0.0 (0.0-1.5) % Neut # (Auto) 3.9 (1.4-5.7) K/uL Lymph # (Auto) 0.8 (0.6-2.4) K/uL [place] # (Auto) 0.3 (0.0-0.8) K/uL Eos # (Auto) 0.0 (0.0-0.7) K/uL Baso # (Auto) 0.0 (0.0-0.1) K/uL Nucleated RBC % 0.0 /100WBC Nucleated RBCs # 0 K/uL D-Dimer, Quantitative (0.0-0.50) mg/L FEU VBG pH 7.42 H (7.31-7.41) VBG pCO2 41 (35-45) mmHG VBG pO2 38 (30-40) mmHG VBG HCO3 26 (22-30) mEq/L VBG Total CO2 23 L (41-51) mmol/L VBG Base Excess 1.4 (-3.0-3.0) Lactate 1.1 (0.20-2.00) mmol/L Sodium (136-148) mmol/L Potassium (3.5-5.1) mmol/L Chloride (98-107) mmol/L Carbon Dioxide (21.0-32.0) mmol/L BUN (7.0-18.0) mg/dL Creatinine (0.8-1.3) mg/dL Est Cr Clr Drug Dosing mL/min Estimated GFR (MDRD) ml/min Glucose (74-106) mg/dL Calcium (8.5-10.1) mg/dL Total Bilirubin (0.2-1.0) mg/dL AST (15-37) IU/L ALT (14-63) IU/L Alkaline Phosphatase (46-116) U/L Troponin I (0.000-0.056) ng/mL B-Natriuretic Peptide (<100) PG/ML Total Protein (6.4-8.2) g/dL Albumin (3.4-5.0) g/dL Globulin (2.6-4.0) g/dL Albumin/Globulin Ratio (0.9-1.6) SARS-CoV-2 RNA (MEET) (NEGATIVE) 03/31/20 03/31/20 03/31/20 Range/Units 14:28 14:28 14:28 WBC (4.0-11.0) K/uL RBC (4.50-5.90) M/uL Hgb (13.0-17.0) g/dL Hct (38.0-50.0) % MCV (80.0-98.0) fL MCH (27.0-32.0) pg MCHC (31.0-37.0) g/dL RDW Std Deviation (28.0-62.0) fl RDW Coeff of Vera (11.0-15.0) % Plt Count (150-400) K/uL MPV (7.40-12.00) fL Neut % (Auto) (48.0-80.0) % Lymph % (Auto) (16.0-40.0) % [place] % (Auto) (0.0-15.0) % Eos % (Auto) (0.0-7.0) % Baso % (Auto) (0.0-1.5) % Neut # (Auto) (1.4-5.7) K/uL Lymph # (Auto) (0.6-2.4) K/uL [place] # (Auto) (0.0-0.8) K/uL Eos # (Auto) (0.0-0.7) K/uL Baso # (Auto) (0.0-0.1) K/uL Nucleated RBC % /100WBC Nucleated RBCs # K/uL D-Dimer, Quantitative 0.38 (0.0-0.50) mg/L FEU VBG pH (7.31-7.41) VBG pCO2 (35-45) mmHG VBG pO2 (30-40) mmHG VBG HCO3 (22-30) mEq/L VBG Total CO2 (41-51) mmol/L VBG Base Excess (-3.0-3.0) Lactate (0.20-2.00) mmol/L Sodium 135 L (136-148) mmol/L Potassium 3.7 (3.5-5.1) mmol/L Chloride 100 (98-107) mmol/L Carbon Dioxide 26.7 (21.0-32.0) mmol/L BUN 16 (7.0-18.0) mg/dL Creatinine 1.0 (0.8-1.3) mg/dL Est Cr Clr Drug Dosing 54.27 mL/min Estimated GFR (MDRD) > 60.0 ml/min Glucose 109 H (74-106) mg/dL Calcium 8.4 L (8.5-10.1) mg/dL Total Bilirubin 0.5 (0.2-1.0) mg/dL AST 51 H (15-37) IU/L ALT 64 H (14-63) IU/L Alkaline Phosphatase 67 (46-116) U/L Troponin I < 0.050 (0.000-0.056) ng/mL B-Natriuretic Peptide 23 (<100) PG/ML Total Protein 6.5 (6.4-8.2) g/dL Albumin 2.7 L (3.4-5.0) g/dL Globulin 3.8 (2.6-4.0) g/dL Albumin/Globulin Ratio 0.7 L (0.9-1.6) SARS-CoV-2 RNA (MEET) (NEGATIVE) 03/31/20 Range/Units 14:30 WBC (4.0-11.0) K/uL RBC (4.50-5.90) M/uL Hgb (13.0-17.0) g/dL Hct (38.0-50.0) % MCV (80.0-98.0) fL MCH (27.0-32.0) pg MCHC (31.0-37.0) g/dL RDW Std Deviation (28.0-62.0) fl RDW Coeff of Vera (11.0-15.0) % Plt Count (150-400) K/uL MPV (7.40-12.00) fL Neut % (Auto) (48.0-80.0) % Lymph % (Auto) (16.0-40.0) % [place] % (Auto) (0.0-15.0) % Eos % (Auto) (0.0-7.0) % Baso % (Auto) (0.0-1.5) % Neut # (Auto) (1.4-5.7) K/uL Lymph # (Auto) (0.6-2.4) K/uL [place] # (Auto) (0.0-0.8) K/uL Eos # (Auto) (0.0-0.7) K/uL Baso # (Auto) (0.0-0.1) K/uL Nucleated RBC % /100WBC Nucleated RBCs # K/uL D-Dimer, Quantitative (0.0-0.50) mg/L FEU VBG pH (7.31-7.41) VBG pCO2 (35-45) mmHG VBG pO2 (30-40) mmHG VBG HCO3 (22-30) mEq/L VBG Total CO2 (41-51) mmol/L VBG Base Excess (-3.0-3.0) Lactate (0.20-2.00) mmol/L Sodium (136-148) mmol/L Potassium (3.5-5.1) mmol/L Chloride (98-107) mmol/L Carbon Dioxide (21.0-32.0) mmol/L BUN (7.0-18.0) mg/dL Creatinine (0.8-1.3) mg/dL Est Cr Clr Drug Dosing mL/min Estimated GFR (MDRD) ml/min Glucose (74-106) mg/dL Calcium (8.5-10.1) mg/dL Total Bilirubin (0.2-1.0) mg/dL AST (15-37) IU/L ALT (14-63) IU/L Alkaline Phosphatase (46-116) U/L Troponin I (0.000-0.056) ng/mL B-Natriuretic Peptide (<100) PG/ML Total Protein (6.4-8.2) g/dL Albumin (3.4-5.0) g/dL Globulin (2.6-4.0) g/dL Albumin/Globulin Ratio (0.9-1.6) SARS-CoV-2 RNA (MEET) POSITIVE H (NEGATIVE) Result Diagrams: 03/31/20 14:28 03/31/20 14:28 Sepsis Event Note - Evaluation Sepsis Screening Result: No Definite Risk - Focused Exam Vital Signs: Vital Signs Temp Pulse Resp BP Pulse Ox 03/31/20 14:08 36.9 C 80 17 118/83 90 L Problem List Initiated/Reviewed/Updated: Yes Orders Last 24hrs: Active Orders 24 hr Category Date Time Status Admission Status [Patient Status] [ADT] Stat ADT 03/31/20 16:52 Active Antiembolic Devices [RC] PER UNIT ROUTINE Care 03/31/20 18:40 Ordered Cardiac Monitoring [RC] . DIRECTED Care 03/31/20 14:02 Active EKG Documentation Completion [RC] STAT Care 03/31/20 14:02 Active Oxygen Therapy [RC] PRN Care 03/31/20 18:40 Ordered Pulse Oximetry [RC] ASDIRECTED Care 03/31/20 14:02 Active RT Post Treatment Assessment [RC] Click to Edit Care 03/31/20 18:22 Active RT Pre-Treatment Assessment [RC] Click to Edit Care 03/31/20 18:22 Active Up ad Gini [RC] ASDIRECTED Care 03/31/20 18:40 Ordered VTE/DVT Education [RC] PER UNIT ROUTINE Care 03/31/20 18:40 Ordered Vital Signs [RC] Q4H Care 03/31/20 18:40 Ordered Regular Diet [DIET] Diet 03/31/20 Breakfast Ordered CBC WITH AUTO DIFF [HEME] AM Lab 04/01/20 05:11 Ordered CBC WITH AUTO DIFF [HEME] AM Lab 04/02/20 05:11 Ordered CBC WITH AUTO DIFF [HEME] AM Lab 04/03/20 05:11 Ordered CBC WITH AUTO DIFF [HEME] AM Lab 04/04/20 05:11 Ordered CBC WITH AUTO DIFF [HEME] AM Lab 04/05/20 05:11 Ordered COMPREHENSIVE METABOLIC PN,CMP [CHEM] AM Lab 04/01/20 05:11 Ordered COMPREHENSIVE METABOLIC PN,CMP [CHEM] AM Lab 04/02/20 05:11 Ordered COMPREHENSIVE METABOLIC PN,CMP [CHEM] AM Lab 04/03/20 05:11 Ordered COMPREHENSIVE METABOLIC PN,CMP [CHEM] AM Lab 04/04/20 05:11 Ordered COMPREHENSIVE METABOLIC PN,CMP [CHEM] AM Lab 04/05/20 05:11 Ordered Acetaminophen/HYDROcodone [[place] 325-5 MG] Med 03/31/20 18:22 Active 1 tab PO Q8H PRN Albuterol [Ventolin HFA] Med 03/31/20 18:22 Active 0 gm INH Q4H PRN Aspirin [Halfprin] Med 04/01/20 09:00 Active 81 mg PO DAILY Enoxaparin [Lovenox] Med 03/31/20 18:45 Ordered 40 mg SUBCUT Q24H Remdesivir (Eua) [Remdesivir (EUA)] 100 mg Med 04/01/20 18:45 Ordered Sodium Chloride 0.9% [Normal Saline] 100 ml IV Q24H Sodium Chloride 0.9% [Saline Flush] Med 03/31/20 14:16 Active 10 ml FLUSH ASDIRECTED PRN Sodium Chloride 0.9% [Saline Flush] Med 03/31/20 14:16 Active 2.5 ml FLUSH ASDIRECTED PRN atorvaSTATin Calcium [Atorvastatin Calcium] Med 03/31/20 21:00 Active 80 mg PO BEDTIME dexAMETHasone Med 04/01/20 09:00 Ordered 6 mg PO DAILY Saline Lock Insert [OM.PC] Stat Oth 03/31/20 14:16 Ordered Sequential Compression Device [OM.PC] Per Unit Routine Oth 03/31/20 18:40 Ordered Resuscitation Status Routine Resus Stat 03/31/20 18:40 Ordered Medication Orders Hydrocodone Bitart/Acetaminophen ([place] 325-5 Mg) 1 tab PO Q8H PRN PRN Reason: Pain Albuterol (Ventolin Hfa) 0 gm INH Q4H PRN PRN Reason: Wheezing Aspirin (Halfprin) 81 mg PO DAILY [facility] Dexamethasone (Dexamethasone) 6 mg PO DAILY [facility] Enoxaparin Sodium (Lovenox) 40 mg SUBCUT Q24H [facility] Remdesivir 100 mg/ Sodium (Chloride) 100 mls @ 100 mls/hr IV Q24H [facility] Stop: 04/04/20 19:44 Non-Formulary Medication (Atorvastatin Calcium [Atorvastatin Calcium]) 80 mg PO BEDTIME [facility] Sodium Chloride (Saline Flush) 10 ml FLUSH ASDIRECTED PRN PRN Reason: Keep Vein Open Last Admin: 10/12/20 14:24 Dose: 10 ml Documented by: JEANETTE Sodium Chloride (Saline Flush) 2.5 ml FLUSH ASDIRECTED PRN PRN Reason: Keep Vein Open Last Admin: 03/31/20 14:24 Dose: 2.5 ml Documented by: JEANETTE Assessment/Plan Comment:: 74 yo male admitted for COVID with acute hypoxic respiratory failure PAtient was given Remdesivir fact sheet about FDA EUA. He was explained the risks including hepatitis and allergic reaction. He has agreed to its use. We will treat with dexamethasone, remdesivir, and prophylactic lovenox.
[2020-03-31] MEDS ORDERED: Non-Formulary Medication 1 Each (Atorvastatin Calcium [Atorvastatin Calcium] 80 MG) PO SCH (21:00)
[2020-03-31] MEDS ORDERED: Enoxaparin 40 MG/0.4 ML Syringe SUBCUT ONE (23:00)
[2020-04-01 06:19] LABS: BLOOD UREA NITROGEN,BUN 19 mg/dL (7.0-18.0); CARBON DIOXIDE,CO2 24.5 mmol/L (21.0-32.0); CHLORIDE,CL 104 mmol/L (98-107); GLUCOSE RANDOM 131 mg/dL (74-106); POTASSIUM,K 4.2 mmol/L (3.5-5.1); SODIUM,NA 138 mmol/L (136-148)
[2020-04-01] MEDS: Dexamethasone 4 MG Tab PO SCH (08:40)
[2020-04-01] MEDS ORDERED: Enoxaparin 40 MG/0.4 ML Syringe SUBCUT SCH (09:00)
[2020-04-01] MEDS ORDERED: Aspirin 81 MG Tab.EC PO SCH (09:00)
[2020-04-01] MEDS ORDERED: FLU Vacc QV2020-21(65YR UP)/PF 240 MCG/0.7 ML Syringe IM ONE (10:00)
--- NOTE | 2020-04-01 10:03 | PCM.PN ---
- General Info Date of Service: 04/01/20 - Review of Systems Systems Review Comment:: reports dry cough, feeling better - Patient Data Vitals - Most Recent: Last Vital Signs Temp 36.9 C 04/01/20 08:00 Pulse 48 L 04/01/20 08:00 Resp 18 04/01/20 08:00 BP 103/57 L 04/01/20 08:00 Pulse Ox 92 L 04/01/20 08:00 Weight - Most Recent: 63.639 kg I&O - Last 24 Hours: Intake & Output 03/31/20 04/01/20 04/01/20 22:59 06:59 14:59 Intake Total 400 Balance 400 Lab Results Last 24 Hours: Laboratory Results - last 24 hr 03/31/20 03/31/20 03/31/20 Range/Units 14:28 14:28 14:28 WBC 5.07 (4.0-11.0) K/uL RBC 4.63 (4.50-5.90) M/uL Hgb 14.7 (13.0-17.0) g/dL Hct 44.3 (38.0-50.0) % MCV 95.7 (80.0-98.0) fL MCH 31.7 (27.0-32.0) pg MCHC 33.2 (31.0-37.0) g/dL RDW Std Deviation 49.4 (28.0-62.0) fl RDW Coeff of Vera 14 (11.0-15.0) % Plt Count 102 L (150-400) K/uL MPV 11.00 (7.40-12.00) fL Neut % (Auto) 76.9 (48.0-80.0) % Lymph % (Auto) 16.2 (16.0-40.0) % [place] % (Auto) 6.7 (0.0-15.0) % Eos % (Auto) 0.2 (0.0-7.0) % Baso % (Auto) 0.0 (0.0-1.5) % Neut # (Auto) 3.9 (1.4-5.7) K/uL Lymph # (Auto) 0.8 (0.6-2.4) K/uL [place] # (Auto) 0.3 (0.0-0.8) K/uL Eos # (Auto) 0.0 (0.0-0.7) K/uL Baso # (Auto) 0.0 (0.0-0.1) K/uL Nucleated RBC % 0.0 /100WBC Nucleated RBCs # 0 K/uL D-Dimer, Quantitative (0.0-0.50) mg/L FEU VBG pH 7.42 H (7.31-7.41) VBG pCO2 41 (35-45) mmHG VBG pO2 38 (30-40) mmHG VBG HCO3 26 (22-30) mEq/L VBG Total CO2 23 L (41-51) mmol/L VBG Base Excess 1.4 (-3.0-3.0) Lactate 1.1 (0.20-2.00) mmol/L Sodium (136-148) mmol/L Potassium (3.5-5.1) mmol/L Chloride (98-107) mmol/L Carbon Dioxide (21.0-32.0) mmol/L BUN (7.0-18.0) mg/dL Creatinine (0.8-1.3) mg/dL Est Cr Clr Drug Dosing mL/min Estimated GFR (MDRD) ml/min Glucose (74-106) mg/dL Calcium (8.5-10.1) mg/dL Total Bilirubin (0.2-1.0) mg/dL AST (15-37) IU/L ALT (14-63) IU/L Alkaline Phosphatase (46-116) U/L Troponin I (0.000-0.056) ng/mL B-Natriuretic Peptide (<100) PG/ML Total Protein (6.4-8.2) g/dL Albumin (3.4-5.0) g/dL Globulin (2.6-4.0) g/dL Albumin/Globulin Ratio (0.9-1.6) SARS-CoV-2 RNA (MEET) (NEGATIVE) 03/31/20 03/31/20 03/31/20 Range/Units 14:28 14:28 14:28 WBC (4.0-11.0) K/uL RBC (4.50-5.90) M/uL Hgb (13.0-17.0) g/dL Hct (38.0-50.0) % MCV (80.0-98.0) fL MCH (27.0-32.0) pg MCHC (31.0-37.0) g/dL RDW Std Deviation (28.0-62.0) fl RDW Coeff of Vera (11.0-15.0) % Plt Count (150-400) K/uL MPV (7.40-12.00) fL Neut % (Auto) (48.0-80.0) % Lymph % (Auto) (16.0-40.0) % [place] % (Auto) (0.0-15.0) % Eos % (Auto) (0.0-7.0) % Baso % (Auto) (0.0-1.5) % Neut # (Auto) (1.4-5.7) K/uL Lymph # (Auto) (0.6-2.4) K/uL [place] # (Auto) (0.0-0.8) K/uL Eos # (Auto) (0.0-0.7) K/uL Baso # (Auto) (0.0-0.1) K/uL Nucleated RBC % /100WBC Nucleated RBCs # K/uL D-Dimer, Quantitative 0.38 (0.0-0.50) mg/L FEU VBG pH (7.31-7.41) VBG pCO2 (35-45) mmHG VBG pO2 (30-40) mmHG VBG HCO3 (22-30) mEq/L VBG Total CO2 (41-51) mmol/L VBG Base Excess (-3.0-3.0) Lactate (0.20-2.00) mmol/L Sodium 135 L (136-148) mmol/L Potassium 3.7 (3.5-5.1) mmol/L Chloride 100 (98-107) mmol/L Carbon Dioxide 26.7 (21.0-32.0) mmol/L BUN 16 (7.0-18.0) mg/dL Creatinine 1.0 (0.8-1.3) mg/dL Est Cr Clr Drug Dosing 54.27 mL/min Estimated GFR (MDRD) > 60.0 ml/min Glucose 109 H (74-106) mg/dL Calcium 8.4 L (8.5-10.1) mg/dL Total Bilirubin 0.5 (0.2-1.0) mg/dL AST 51 H (15-37) IU/L ALT 64 H (14-63) IU/L Alkaline Phosphatase 67 (46-116) U/L Troponin I < 0.050 (0.000-0.056) ng/mL B-Natriuretic Peptide 23 (<100) PG/ML Total Protein 6.5 (6.4-8.2) g/dL Albumin 2.7 L (3.4-5.0) g/dL Globulin 3.8 (2.6-4.0) g/dL Albumin/Globulin Ratio 0.7 L (0.9-1.6) SARS-CoV-2 RNA (MEET) (NEGATIVE) 03/31/20 04/01/20 04/01/20 Range/Units 14:30 05:43 05:43 WBC 4.46 (4.0-11.0) K/uL RBC 4.32 L (4.50-5.90) M/uL Hgb 13.9 (13.0-17.0) g/dL Hct 41.1 (38.0-50.0) % MCV 95.1 (80.0-98.0) fL MCH 32.2 H (27.0-32.0) pg MCHC 33.8 (31.0-37.0) g/dL RDW Std Deviation 47.3 (28.0-62.0) fl RDW Coeff of Vera 14 (11.0-15.0) % Plt Count 116 L (150-400) K/uL MPV 10.70 (7.40-12.00) fL Neut % (Auto) 74.5 (48.0-80.0) % Lymph % (Auto) 18.8 (16.0-40.0) % [place] % (Auto) 6.7 (0.0-15.0) % Eos % (Auto) 0.0 (0.0-7.0) % Baso % (Auto) 0.0 (0.0-1.5) % Neut # (Auto) 3.3 (1.4-5.7) K/uL Lymph # (Auto) 0.8 (0.6-2.4) K/uL [place] # (Auto) 0.3 (0.0-0.8) K/uL Eos # (Auto) 0.0 (0.0-0.7) K/uL Baso # (Auto) 0.0 (0.0-0.1) K/uL Nucleated RBC % 0.0 /100WBC Nucleated RBCs # 0 K/uL D-Dimer, Quantitative (0.0-0.50) mg/L FEU VBG pH (7.31-7.41) VBG pCO2 (35-45) mmHG VBG pO2 (30-40) mmHG VBG HCO3 (22-30) mEq/L VBG Total CO2 (41-51) mmol/L VBG Base Excess (-3.0-3.0) Lactate (0.20-2.00) mmol/L Sodium 138 (136-148) mmol/L Potassium 4.2 (3.5-5.1) mmol/L Chloride 104 (98-107) mmol/L Carbon Dioxide 24.5 (21.0-32.0) mmol/L BUN 19 H (7.0-18.0) mg/dL Creatinine 0.9 (0.8-1.3) mg/dL Est Cr Clr Drug Dosing 60.30 mL/min Estimated GFR (MDRD) > 60.0 ml/min Glucose 131 H (74-106) mg/dL Calcium 8.0 L (8.5-10.1) mg/dL Total Bilirubin 0.3 (0.2-1.0) mg/dL AST 49 H (15-37) IU/L ALT 66 H (14-63) IU/L Alkaline Phosphatase 59 (46-116) U/L Troponin I (0.000-0.056) ng/mL B-Natriuretic Peptide (<100) PG/ML Total Protein 5.9 L (6.4-8.2) g/dL Albumin 2.3 L (3.4-5.0) g/dL Globulin 3.6 (2.6-4.0) g/dL Albumin/Globulin Ratio 0.6 L (0.9-1.6) SARS-CoV-2 RNA (MEET) POSITIVE H (NEGATIVE) Med Orders - Current: Current Medications Hydrocodone Bitart/Acetaminophen ([place] 325-5 Mg) 1 tab PO Q8H PRN PRN Reason: Pain Albuterol (Ventolin Hfa) 0 gm INH Q4H PRN PRN Reason: Wheezing Atorvastatin Calcium (Lipitor) 80 mg PO BEDTIME [facility] Dexamethasone (Dexamethasone) 6 mg PO DAILY [facility] Last Admin: 04/01/20 08:40 Dose: 6 mg Documented by: Enoxaparin Sodium (Lovenox) 40 mg SUBCUT Q24H [facility] Remdesivir 100 mg/ Sodium (Chloride) 100 mls @ 100 mls/hr IV Q24H [facility] Stop: 04/04/20 19:44 Sodium Chloride (Saline Flush) 10 ml FLUSH ASDIRECTED PRN PRN Reason: Keep Vein Open Last Admin: 03/31/20 14:24 Dose: 10 ml Documented by: Sodium Chloride (Saline Flush) 2.5 ml FLUSH ASDIRECTED PRN PRN Reason: Keep Vein Open Last Admin: 03/31/20 14:24 Dose: 2.5 ml Documented by: Discontinued Medications Dexamethasone (Dexamethasone) 6 mg IVPUSH ONETIME ONE Stop: 03/31/20 16:50 Last Admin: 03/31/20 17:11 Dose: 6 mg Documented by: Enoxaparin Sodium (Lovenox) 40 mg SUBCUT Q24H [facility] Last Admin: 04/01/20 00:41 Dose: Not Given Documented by: Enoxaparin Sodium (Lovenox) 40 mg SUBCUT ONETIME ONE Stop: 03/31/20 23:01 Last Admin: 03/31/20 23:32 Dose: 40 mg Documented by: Enoxaparin Sodium (Lovenox) 40 mg SUBCUT Q24H [facility] Remdesivir 200 mg/ Sodium (Chloride) 250 mls @ 250 mls/hr IV ONETIME ONE Stop: 03/31/20 18:14 Last Admin: 03/31/20 17:41 Dose: 250 mls/hr Documented by: Influenza Virus Vaccine (Pharmacy To Dose - Influenza Vaccine) 1 each IM ONETIME ONE Stop: 04/01/20 00:06 Influenza Virus Vaccine (Fluzone High-Dose Quad 2020-) 240 mcg IM .ONCE ONE Stop: 04/01/20 10:01 Non-Formulary Medication (Atorvastatin Calcium [Atorvastatin Calcium]) 80 mg PO BEDTIME [facility] Last Admin: 04/01/20 00:40 Dose: Not Given Documented by: - Exam General: Alert, Moderate Distress Neck: Supple Lungs: Clear to Auscultation, Normal Respiratory Effort Cardiovascular: Regular Rate, Regular Rhythm GI/Abdominal Exam: Normal Bowel Sounds, Soft, Non-Tender Extremities: Non-Tender, No Pedal Edema Skin: Warm, Dry, Intact Neurological: No New Focal Deficit Sepsis Event Note - Evaluation Sepsis Screening Result: No Definite Risk - Focused Exam Vital Signs: Vital Signs Temp Pulse Resp BP Pulse Ox 04/01/20 08:00 36.9 C 48 L 18 103/57 L 92 L 04/01/20 04:06 37.1 C 55 L 18 96/59 L 92 L 03/31/20 23:27 37.0 C 60 20 106/58 L 94 L - Problem List Review Problem List Initiated/Reviewed/Updated: Yes - My Orders Last 24 Hours: My Active Orders 03/31/20 18:22 RT Post Treatment Assessment [RC] Click to Edit RT Pre-Treatment Assessment [RC] Click to Edit Acetaminophen/HYDROcodone [[place] 325-5 MG] 1 tab PO Q8H PRN Albuterol [Ventolin HFA] 0 gm INH Q4H PRN 03/31/20 18:40 Antiembolic Devices [RC] PER UNIT ROUTINE Oxygen Therapy [RC] PRN Up ad Gini [RC] ASDIRECTED VTE/DVT Education [RC] PER UNIT ROUTINE Vital Signs [RC] Q4H Sequential Compression Device [OM.PC] Per Unit Routine Resuscitation Status Routine 04/01/20 00:05 Influenza Vaccine Charge [RC] .DISCHARGE 04/01/20 09:00 dexAMETHasone 6 mg PO DAILY 04/01/20 18:45 Remdesivir (Eua) [Remdesivir (EUA)] 100 mg Sodium Chloride 0.9% [Normal Saline] 100 ml IV Q24H 04/01/20 21:00 Enoxaparin [Lovenox] 40 mg SUBCUT Q24H atorvaSTATin [Lipitor] 80 mg PO BEDTIME 04/02/20 05:11 CBC WITH AUTO DIFF [HEME] AM COMPREHENSIVE METABOLIC PN,CMP [CHEM] AM 04/03/20 05:11 CBC WITH AUTO DIFF [HEME] AM COMPREHENSIVE METABOLIC PN,CMP [CHEM] AM 04/04/20 05:11 CBC WITH AUTO DIFF [HEME] AM COMPREHENSIVE METABOLIC PN,CMP [CHEM] AM 04/05/20 05:11 CBC WITH AUTO DIFF [HEME] AM COMPREHENSIVE METABOLIC PN,CMP [CHEM] AM - Plan Plan:: 74 yo male admitted for COVID with acute hypoxic respiratory failure We will continue treatment with dexamethasone, remdesivir, and prophylactic lovenox. Will wean supplemental oxygen as tolerated.
[2020-04-01] MEDS: REMDESIVIR (EUA) 100 MG in Sodium Chloride 0.9% 100 ML IV SCH (18:47)
[2020-04-01] MEDS: Enoxaparin 40 MG/0.4 ML Syringe SUBCUT SCH (20:16)
[2020-04-01] MEDS: atorvaSTATin 40 MG Tab PO SCH (20:16)
[2020-04-02 06:44] LABS: BLOOD UREA NITROGEN,BUN 21 mg/dL (7.0-18.0); CARBON DIOXIDE,CO2 24.2 mmol/L (21.0-32.0); CHLORIDE,CL 106 mmol/L (98-107); GLUCOSE RANDOM 111 mg/dL (74-106); POTASSIUM,K 4.1 mmol/L (3.5-5.1); SODIUM,NA 139 mmol/L (136-148)
[2020-04-02] MEDS: Dexamethasone 4 MG Tab PO SCH (08:18)
--- NOTE | 2020-04-02 12:38 | PCM.PN ---
- General Info Date of Service: 04/02/20 - Patient Data Vitals - Most Recent: Last Vital Signs Temp 36.3 C 04/02/20 07:22 Pulse 46 L 04/02/20 07:22 Resp 17 04/02/20 07:22 BP 129/70 04/02/20 07:22 Pulse Ox 95 04/02/20 10:00 Weight - Most Recent: 63.639 kg I&O - Last 24 Hours: Intake & Output 04/01/20 04/02/20 04/02/20 22:59 06:59 14:59 Intake Total 880 320 Output Total 840 400 Balance 40 -80 Lab Results Last 24 Hours: Laboratory Results - last 24 hr 04/02/20 04/02/20 Range/Units 06:00 06:00 WBC 10.32 (4.0-11.0) K/uL RBC 4.30 L (4.50-5.90) M/uL Hgb 13.8 (13.0-17.0) g/dL Hct 40.9 (38.0-50.0) % MCV 95.1 (80.0-98.0) fL MCH 32.1 H (27.0-32.0) pg MCHC 33.7 (31.0-37.0) g/dL RDW Std Deviation 47.3 (28.0-62.0) fl RDW Coeff of Vera 14 (11.0-15.0) % Plt Count 144 L (150-400) K/uL MPV 11.40 (7.40-12.00) fL Neut % (Auto) 86.6 H (48.0-80.0) % Lymph % (Auto) 8.3 L (16.0-40.0) % [place] % (Auto) 5.1 (0.0-15.0) % Eos % (Auto) 0.0 (0.0-7.0) % Baso % (Auto) 0.0 (0.0-1.5) % Neut # (Auto) 8.9 H (1.4-5.7) K/uL Lymph # (Auto) 0.9 (0.6-2.4) K/uL [place] # (Auto) 0.5 (0.0-0.8) K/uL Eos # (Auto) 0.0 (0.0-0.7) K/uL Baso # (Auto) 0.0 (0.0-0.1) K/uL Nucleated RBC % 0.0 /100WBC Nucleated RBCs # 0 K/uL Sodium 139 (136-148) mmol/L Potassium 4.1 (3.5-5.1) mmol/L Chloride 106 (98-107) mmol/L Carbon Dioxide 24.2 (21.0-32.0) mmol/L BUN 21 H (7.0-18.0) mg/dL Creatinine 0.8 (0.8-1.3) mg/dL Est Cr Clr Drug Dosing 67.83 mL/min Estimated GFR (MDRD) > 60.0 ml/min Glucose 111 H (74-106) mg/dL Calcium 8.5 (8.5-10.1) mg/dL Total Bilirubin 0.4 (0.2-1.0) mg/dL AST 39 H (15-37) IU/L ALT 62 (14-63) IU/L Alkaline Phosphatase 57 (46-116) U/L Total Protein 5.9 L (6.4-8.2) g/dL Albumin 2.3 L (3.4-5.0) g/dL Globulin 3.6 (2.6-4.0) g/dL Albumin/Globulin Ratio 0.6 L (0.9-1.6) Med Orders - Current: Current Medications Hydrocodone Bitart/Acetaminophen ([place] 325-5 Mg) 1 tab PO Q8H PRN PRN Reason: Pain Albuterol (Ventolin Hfa) 0 gm INH Q4H PRN PRN Reason: Wheezing Atorvastatin Calcium (Lipitor) 80 mg PO BEDTIME [facility] Last Admin: 04/01/20 20:16 Dose: 80 mg Documented by: Dexamethasone (Dexamethasone) 6 mg PO DAILY [facility] Last Admin: 04/02/20 08:18 Dose: 6 mg Documented by: Enoxaparin Sodium (Lovenox) 40 mg SUBCUT Q24H [facility] Last Admin: 04/01/20 20:16 Dose: 40 mg Documented by: Remdesivir 100 mg/ Sodium (Chloride) 100 mls @ 100 mls/hr IV Q24H [facility] Stop: 04/04/20 19:44 Last Admin: 04/01/20 18:47 Dose: 100 mls/hr Documented by: Sodium Chloride (Saline Flush) 10 ml FLUSH ASDIRECTED PRN PRN Reason: Keep Vein Open Last Admin: 03/31/20 14:24 Dose: 10 ml Documented by: Sodium Chloride (Saline Flush) 2.5 ml FLUSH ASDIRECTED PRN PRN Reason: Keep Vein Open Last Admin: 03/31/20 14:24 Dose: 2.5 ml Documented by: Discontinued Medications Dexamethasone (Dexamethasone) 6 mg IVPUSH ONETIME ONE Stop: 03/31/20 16:50 Last Admin: 03/31/20 17:11 Dose: 6 mg Documented by: Enoxaparin Sodium (Lovenox) 40 mg SUBCUT Q24H [facility] Last Admin: 04/01/20 00:41 Dose: Not Given Documented by: Enoxaparin Sodium (Lovenox) 40 mg SUBCUT ONETIME ONE Stop: 03/31/20 23:01 Last Admin: 03/31/20 23:32 Dose: 40 mg Documented by: Enoxaparin Sodium (Lovenox) 40 mg SUBCUT Q24H [facility] Remdesivir 200 mg/ Sodium (Chloride) 250 mls @ 250 mls/hr IV ONETIME ONE Stop: 03/31/20 18:14 Last Admin: 03/31/20 17:41 Dose: 250 mls/hr Documented by: Influenza Virus Vaccine (Pharmacy To Dose - Influenza Vaccine) 1 each IM ONETIME ONE Stop: 04/01/20 00:06 Influenza Virus Vaccine (Fluzone High-Dose Quad 2020-21) 240 mcg IM .ONCE ONE Stop: 04/01/20 10:01 Non-Formulary Medication (Atorvastatin Calcium [Atorvastatin Calcium]) 80 mg PO BEDTIME [facility] Last Admin: 04/01/20 00:40 Dose: Not Given Documented by: - Exam General: Alert, Oriented Neck: Supple Lungs: Clear to Auscultation, Normal Respiratory Effort Cardiovascular: Regular Rate, Regular Rhythm GI/Abdominal Exam: Normal Bowel Sounds, Soft, Non-Tender, No Distention Extremities: Normal Inspection, Non-Tender, No Pedal Edema Skin: Warm, Dry, Intact Neurological: No New Focal Deficit Sepsis Event Note - Evaluation Sepsis Screening Result: No Definite Risk - Focused Exam Vital Signs: Vital Signs Temp Pulse Resp BP Pulse Ox Pulse Ox Pulse Ox 04/02/20 10:00 94 L 95 94 L 04/02/20 07:22 36.3 C 46 L 17 129/70 95 04/02/20 04:50 36.6 C 44 L 17 109/61 92 L - Problem List Review Problem List Initiated/Reviewed/Updated: Yes - My Orders Last 24 Hours: My Active Orders 04/01/20 18:45 Remdesivir (Eua) [Remdesivir (EUA)] 100 mg Sodium Chloride 0.9% [Normal Saline] 100 ml IV Q24H 04/01/20 21:00 Enoxaparin [Lovenox] 40 mg SUBCUT Q24H atorvaSTATin [Lipitor] 80 mg PO BEDTIME 04/03/20 05:11 CBC WITH AUTO DIFF [HEME] AM COMPREHENSIVE METABOLIC PN,CMP [CHEM] AM 04/04/20 05:11 CBC WITH AUTO DIFF [HEME] AM COMPREHENSIVE METABOLIC PN,CMP [CHEM] AM 04/05/20 05:11 CBC WITH AUTO DIFF [HEME] AM COMPREHENSIVE METABOLIC PN,CMP [CHEM] AM - Plan Plan:: 74 yo male admitted for COVID with acute hypoxic respiratory failure We will continue treatment with dexamethasone, remdesivir, and prophylactic lovenox. Will wean supplemental oxygen as tolerated. Anticipate discharge home tomorrow.
[2020-04-02] MEDS: REMDESIVIR (EUA) 100 MG in Sodium Chloride 0.9% 100 ML IV SCH (18:35)
[2020-04-02] MEDS: atorvaSTATin 40 MG Tab PO SCH (20:03)
[2020-04-02] MEDS: Enoxaparin 40 MG/0.4 ML Syringe SUBCUT SCH (20:04)
[2020-04-03 06:22] LABS: BLOOD UREA NITROGEN,BUN 26 mg/dL (7.0-18.0); CARBON DIOXIDE,CO2 25.8 mmol/L (21.0-32.0); CHLORIDE,CL 105 mmol/L (98-107); GLUCOSE RANDOM 100 mg/dL (74-106); POTASSIUM,K 4.2 mmol/L (3.5-5.1); SODIUM,NA 140 mmol/L (136-148)
[2020-04-03] MEDS: Sodium Chloride 0.9% 2.5 ML Syringe FLUSH PRN (08:57)
[2020-04-03] MEDS: Dexamethasone 4 MG Tab PO SCH (08:58)
--- NOTE | 2020-04-03 13:42 | PCM.DCSUM1 ---
Discharge Summary - Discharge Data Discharge Date: 04/03/20 Discharge Disposition: Home, Self-Care 01 Condition: Good - Referral to Home Health Primary Care Physician: PCP None - Patient Summary/Data Hospital Course: 74 yo male who was admitted for COVID-19. He presented with fevers, fatigue and cough. In the ED he tested positive for COVID. He was found to be hypoxic requiring 2 L NC to keep sats above 90%. CXR showed no obvious infiltrate. He was treated with dexamethasone, and Remdesivir for five days. He did have improvement in his symptoms and was weened of oxygen. He is requesting discharge. [facility] was [facility] - Discharge Plan Prescriptions/Med Rec: dexAMETHasone [Decadron] 6 mg PO DAILY #5 tablet Home Medications: Home Meds Albuterol [Proventil HFA] 2 puff INH Q6H PRN 08/11/16 [History] Ascorbate Calcium [Vitamin C] 1,000 intunit PO TID MDD 3000 08/11/16 [History] Cholecalciferol (Vitamin D3) [Vitamin D3] 1,000 units PO DAILY 08/11/16 [History] Multivitamin [Men's Multi-Vitamin] 1 tab PO DAILY 08/11/16 [History] Omeprazole 20 mg PO DAILY 08/11/16 [History] [place] 200 mg PO DAILY 08/11/16 [History] Zinc 50 mg PO DAILY 08/11/16 [History] atorvaSTATin Calcium [Atorvastatin Calcium] 80 mg PO BEDTIME 08/11/16 [History] Budesonide/Formoterol [Symbicort 160-4.5 MCG] 2 puff INH BID PRN 04/01/20 [History] Gabapentin [Neurontin] 300 mg PO BEDTIME 04/01/20 [History] dexAMETHasone [Decadron] 6 mg PO DAILY #5 tablet 04/03/20 [Rx] Patient Handouts: COVID-19 Frequently Asked Questions, COVID-19, COVID-19: How to Protect Yourself and Others - CDC, Prevent the Spread of COVID-19 if You Are Sick - [facility] Referrals: Jordan Arias, LOSS PREVENTION AND SAFETY MANAGER [Ordering Only Provider] - 04/09/20 1:00 pm (Please arrive 15mins early. Bring ID and your own facemask. Thank you!) - Discharge Summary/Plan Comment DC Time >30 min.: No - Patient Data Vitals - Most Recent: Last Vital Signs Temp 36.8 C 04/03/20 12:00 Pulse 47 L 04/03/20 12:00 Resp 16 04/03/20 12:00 BP 119/65 04/03/20 12:00 Pulse Ox 94 L 04/03/20 12:00 Weight - Most Recent: 63.639 kg I&O - Last 24 hours: Intake & Output 04/02/20 04/03/20 04/03/20 22:59 06:59 14:59 Intake Total 560 450 Output Total 435 400 Balance 125 50 Lab Results - Last 24 hrs: Laboratory Results - last 24 hr 04/03/20 04/03/20 Range/Units 05:52 05:52 WBC 9.40 (4.0-11.0) K/uL RBC 4.51 (4.50-5.90) M/uL Hgb 14.3 (13.0-17.0) g/dL Hct 42.9 (38.0-50.0) % MCV 95.1 (80.0-98.0) fL MCH 31.7 (27.0-32.0) pg MCHC 33.3 (31.0-37.0) g/dL RDW Std Deviation 48.6 (28.0-62.0) fl RDW Coeff of Vera 14 (11.0-15.0) % Plt Count 168 (150-400) K/uL MPV 11.00 (7.40-12.00) fL Neut % (Auto) 83.1 H (48.0-80.0) % Lymph % (Auto) 10.5 L (16.0-40.0) % [place] % (Auto) 6.3 (0.0-15.0) % Eos % (Auto) 0.0 (0.0-7.0) % Baso % (Auto) 0.1 (0.0-1.5) % Neut # (Auto) 7.8 H (1.4-5.7) K/uL Lymph # (Auto) 1.0 (0.6-2.4) K/uL [place] # (Auto) 0.6 (0.0-0.8) K/uL Eos # (Auto) 0.0 (0.0-0.7) K/uL Baso # (Auto) 0.0 (0.0-0.1) K/uL Nucleated RBC % 0.0 /100WBC Nucleated RBCs # 0 K/uL Sodium 140 (136-148) mmol/L Potassium 4.2 (3.5-5.1) mmol/L Chloride 105 (98-107) mmol/L Carbon Dioxide 25.8 (21.0-32.0) mmol/L BUN 26 H (7.0-18.0) mg/dL Creatinine 1.0 (0.8-1.3) mg/dL Est Cr Clr Drug Dosing 54.27 mL/min Estimated GFR (MDRD) > 60.0 ml/min Glucose 100 (74-106) mg/dL Calcium 8.5 (8.5-10.1) mg/dL Total Bilirubin 0.5 (0.2-1.0) mg/dL AST 35 (15-37) IU/L ALT 65 H (14-63) IU/L Alkaline Phosphatase 64 (46-116) U/L Total Protein 5.9 L (6.4-8.2) g/dL Albumin 2.5 L (3.4-5.0) g/dL Globulin 3.4 (2.6-4.0) g/dL Albumin/Globulin Ratio 0.7 L (0.9-1.6) Med Orders - Current: Current Medications Hydrocodone Bitart/Acetaminophen ([place] 325-5 Mg) 1 tab PO Q8H PRN PRN Reason: Pain Albuterol (Ventolin Hfa) 0 gm INH Q4H PRN PRN Reason: Wheezing Atorvastatin Calcium (Lipitor) 80 mg PO BEDTIME [facility] Last Admin: 04/02/20 20:03 Dose: 80 mg Documented by: Dexamethasone (Dexamethasone) 6 mg PO DAILY [facility] Last Admin: 04/03/20 08:58 Dose: 6 mg Documented by: Enoxaparin Sodium (Lovenox) 40 mg SUBCUT Q24H [facility] Last Admin: 04/02/20 20:04 Dose: 40 mg Documented by: Remdesivir 100 mg/ Sodium (Chloride) 100 mls @ 100 mls/hr IV Q24H [facility] Stop: 04/04/20 19:44 Last Admin: 04/02/20 18:35 Dose: 100 mls/hr Documented by: Sodium Chloride (Saline Flush) 10 ml FLUSH ASDIRECTED PRN PRN Reason: Keep Vein Open Last Admin: 03/31/20 14:24 Dose: 10 ml Documented by: Sodium Chloride (Saline Flush) 2.5 ml FLUSH ASDIRECTED PRN PRN Reason: Keep Vein Open Last Admin: 04/03/20 08:57 Dose: 2.5 ml Documented by: Discontinued Medications Dexamethasone (Dexamethasone) 6 mg IVPUSH ONETIME ONE Stop: 03/31/20 16:50 Last Admin: 03/31/20 17:11 Dose: 6 mg Documented by: Enoxaparin Sodium (Lovenox) 40 mg SUBCUT Q24H [facility] Last Admin: 04/01/20 00:41 Dose: Not Given Documented by: Enoxaparin Sodium (Lovenox) 40 mg SUBCUT ONETIME ONE Stop: 03/31/20 23:01 Last Admin: 03/31/20 23:32 Dose: 40 mg Documented by: Enoxaparin Sodium (Lovenox) 40 mg SUBCUT Q24H [facility] Remdesivir 200 mg/ Sodium (Chloride) 250 mls @ 250 mls/hr IV ONETIME ONE Stop: 03/31/20 18:14 Last Admin: 03/31/20 17:41 Dose: 250 mls/hr Documented by: Influenza Virus Vaccine (Pharmacy To Dose - Influenza Vaccine) 1 each IM ONETIME ONE Stop: 04/01/20 00:06 Influenza Virus Vaccine (Fluzone High-Dose Quad 2020-21) 240 mcg IM .ONCE ONE Stop: 04/01/20 10:01 Non-Formulary Medication (Atorvastatin Calcium [Atorvastatin Calcium]) 80 mg PO BEDTIME [facility] Last Admin: 04/01/20 00:40 Dose: Not Given Documented by:
[2020-04-03 16:27] VITALS: BP 109/64; PULSE 48
[2020-04-03] MEDS: REMDESIVIR (EUA) 100 MG in Sodium Chloride 0.9% 100 ML IV SCH (16:58)
== END 2020-04-03 18:15 | disposition home or self-care (01) | DRG 177 ==
LOC: MW.ED 13:54 → MW.MS 20:03
PROVIDERS: ADMIT Internal Medicine; ATTEND Internal Medicine
PROC: XW033E5 Introduction of Remdesivir Anti-infective into Peripheral Vein, Percutaneous Approach, New Technology Group 5 (ICD-10-PCS; principal; 2020-03-31)
PROC: 3E02340 Introduction of Influenza Vaccine into Muscle, Percutaneous Approach (ICD-10-PCS; 2020-04-03)
DX: U07.1 COVID-19 (principal); R09.02 Hypoxemia; J96.01 Acute respiratory failure with hypoxia; E78.00 Pure hypercholesterolemia, unspecified; J44.9 Chronic obstructive pulmonary disease, unspecified; F17.210 Nicotine dependence, cigarettes, uncomplicated; I10 Essential (primary) hypertension; K21.9 Gastro-esophageal reflux disease without esophagitis; M19.90 Unspecified osteoarthritis, unspecified site; Z88.0 Allergy status to penicillin; Z79.82 Long term (current) use of aspirin; Z79.899 Other long term (current) drug therapy; Z23 Encounter for immunization
CPT/HCPCS: 36415; 71045; 80053; 82803; 83605; 83880; 84484; 85025; 85379; 93005; 99285; J1100; J7050; U0002; 90662; 93010; 99284; A9270-GY; G0008; J1650; J8540

== ENCOUNTER 2021-10-08 18:45 | Emergency (ER) | payer OTHER ==
[2021-10-08 20:01] LABS: BLOOD UREA NITROGEN,BUN 24 mg/dL (7.0-18.0); CARBON DIOXIDE,CO2 21.7 mmol/L (21.0-32.0); CHLORIDE,CL 105 mmol/L (98-107); GLUCOSE RANDOM 152 mg/dL (74-106); POTASSIUM,K 4.4 mmol/L (3.5-5.1); SODIUM,NA 139 mmol/L (136-148)
[2021-10-08 20:28] VITALS: BP 133/61; PULSE 57
== END 2021-10-08 20:45 | disposition home or self-care (01) ==
LOC: MW.ED 18:45
DX: R33.9 Retention of urine, unspecified (principal); E78.00 Pure hypercholesterolemia, unspecified; J44.9 Chronic obstructive pulmonary disease, unspecified; K21.9 Gastro-esophageal reflux disease without esophagitis; I10 Essential (primary) hypertension; F17.210 Nicotine dependence, cigarettes, uncomplicated; Z88.0 Allergy status to penicillin; Z79.899 Other long term (current) drug therapy
CPT/HCPCS: 36415; 51702; 51798; 80048; 81001; 99283-25